=== PATIENT | female | born 1935 | race Caucasian/White ===

== ENCOUNTER → 2017-01-08 | Outpatient (CLI) | payer MEDICARE, OTHER ==
[~2017-01-08] MED LIST: ENAL10TA PO; ENAL20TA PO; HYDR1TAB PO; METO200T6 PO; OMG1KC PO
--- OUTSIDE RECORDS SUMMARY | 2017-01-08 10:48 | XMS REPORT | Continuity of Care Document ---
Author Author [facility] Organization [facility] Address Unknown Phone Unavailable Allergies Active Description Code Type Severity Reaction Onset Reported/Identified Relationship to Patient Clinical Status Yes No Known Drug Allergies [id number] Drug Allergy Mild N/A 06/12/2009 Medications Problems Date Dx Coded Attending Type Code Diagnosis Diagnosed By 08/17/2012 Ot 562.10 08/21/2012 Ot 272.4 08/21/2012 Ot 401.9 08/21/2012 Ot 426.3 08/21/2012 Ot 427.89 08/21/2012 Ot 553.20 08/21/2012 Ot 574.10 08/21/2012 Ot 787.01 08/21/2012 Ot 997.1 09/11/2015 Ot V76.12 09/11/2015 Ot 401.9 09/11/2015 Ot 433.10 09/11/2015 Ot 562.10 09/11/2015 Ot 574.20 09/11/2015 Ot 575.8 09/11/2015 Ot 787.91 09/11/2015 Ot 789.00 09/11/2015 Ot V10.42 09/11/2015 Ot V88.01 09/11/2015 Ot 553.20 09/11/2015 Ot 562.10 09/11/2015 Ot 574.20 09/11/2015 Ot V72.83 09/11/2015 Ot V76.12 09/11/2015 Ot 401.9 09/11/2015 Ot 433.10 09/11/2015 Ot 562.10 09/11/2015 Ot 574.20 09/11/2015 Ot 575.8 09/11/2015 Ot 787.91 09/11/2015 Ot 789.00 09/11/2015 Ot V10.42 09/11/2015 Ot V88.01 09/11/2015 Ot 553.20 09/11/2015 Ot 562.10 09/11/2015 Ot 574.20 09/11/2015 Ot V72.83 09/13/2015 PHAMTEE APRN Ot Z12.31 10/04/2015 PHAMTEE FINANCIAL SECRETARY Ot Z12.31 12/18/2015 Ot V76.12 12/18/2015 Ot 401.9 12/18/2015 Ot 433.10 12/18/2015 Ot 562.10 12/18/2015 Ot 574.20 12/18/2015 Ot 575.8 12/18/2015 Ot 787.91 12/18/2015 Ot 789.00 12/18/2015 Ot V10.42 12/18/2015 Ot V88.01 12/18/2015 Ot 553.20 12/18/2015 Ot 562.10 12/18/2015 Ot 574.20 12/18/2015 Ot V72.83 12/18/2015 TEE NATH APRN Ot Z12.31 01/12/2016 TIFFANY SHAY, JENAE Trejo Ot I65.23 01/25/2016 JENAE ALLEN MD Ot I65.23 03/26/2016 TERRY CAICEDO MD Ot M47.896 OTHER SPONDYLOSIS, LUMBAR REGION 04/10/2016 TERRY CAICEDO MD Ot M47.896 OTHER SPONDYLOSIS, LUMBAR REGION Procedures Results Encounters ACCT No. Visit Date/Time Discharge Status Pt. Type Provider Facility Loc./Unit Complaint [id number] 09/11/2015 10:19:00 2014 23:59:59 CLS Outpatient TEE NATH APRN [facility] [id number] 03/06/2016 11:25:00 ACT Outpatient TERRY CAICEDO MD [facility] [id number] 12/18/2015 13:05:00 ACT Outpatient JENAE ALLEN MD [facility] [id number] 08/20/2012 07:40:00 Document Registration [id number] 08/17/2012 05:47:00 Document Registration [id number] 08/14/2012 08:02:00 Document Registration [id number] 08/07/2012 13:13:00 Document Registration [id number] 12/20/2011 13:52:00 Document Registration [id number] 04/26/2011 14:08:00 Document Registration
--- NOTE | 2017-01-08 12:54 | Diagnostic Imaging Report ---
PROCEDURE: US Carotid Duplex Bilateral. TECHNIQUE: Multiple real-time grayscale images were obtained over the carotid arteries in various projections bilaterally. Additional duplex Doppler and color Doppler images were also obtained. INDICATION: Carotid artery disease. COMPARISON: The previous carotid Doppler exam performed on 12/18/2015 noted mild atherosclerotic disease involving both carotid systems but failed to show any sign of a hemodynamically significant stenosis of the common or internal carotid arteries. FINDINGS: On this exam, the atherosclerotic changes are again evident and do not seem to have progressed significantly. The flow velocities still failed to show any sign of a hemodynamically significant stenosis of either carotid system. The flow velocities are as follows: distal CCA right 46.9/ left 61 Proximal ICA right 53.9/ left 48.1 Mid ICA right 46.9/ left 58 Distal ICA right 50.4/ left 70.9 Proximal IC/CC right 0.8/ left 0.7. Both vertebral arteries were identified and there was antegrade flow bilaterally. IMPRESSION: There is atherosclerotic disease involving both carotid systems but there is still no evidence for hemodynamically significant stenosis of the common or internal carotid arteries. Overall, there has been no significant change since the prior study. Dictated by: Dictated on workstation # [id number]
== END ==
LOC: RAD 10:45
PROVIDERS: ATTEND Family Medicine
DX: I65.21 Occlusion and stenosis of right carotid artery (principal); I10 Essential (primary) hypertension
CPT/HCPCS: 93880

== ENCOUNTER → 2018-12-17 | Outpatient (CLI) | payer MEDICARE, OTHER ==
[~2018-12-17] MED LIST changes: +IOHEXOL 350 MG/ML 100 ML (OMNIPAQUE 350) VIAL IV ONE; +NS 100 ML (IVPB) BAG IV ONE; +RECEIVED CONTRAST (Hold Metformin) IV SCH
[2018-12-17 12:09] LABS: CALCIUM 10.1 MG/DL (8.5-10.1); CREATININE SERUM 1.24 MG/DL (0.60-1.30); POTASSIUM 4.2 MMOL/L (3.6-5.0)
--- NOTE | 2018-12-17 15:33 | Diagnostic Imaging Report ---
INDICATION: Left proptosis. TECHNIQUE Multiple contiguous axial images were obtained through the orbits and IACs without the use of intravenous contrast. Sagittal and coronal reformations were then performed. FINDINGS: The visualized intracranial structures are unremarkable. Both globes are normal in appearance. There is prominence of the left inferior rectus muscle as well as the left medial rectus muscle. Both demonstrate a biconvex contour and some lower than expected density. Additionally, there is prominence of the left lacrimal gland with respect to the right. The remaining rectus muscles are normal bilaterally. The frontal, ethmoid, sphenoid, and maxillary sinuses are clear. The ostiomeatal complexes are patent. There is maryjo bullosa on the left with some right deviation of the nasal septum. Mastoid air cells are clear. Both the internal and external auditory canals are widely patent bilaterally. Ossicles are unremarkable. IMPRESSION: 1. Moderate left proptosis with diffuse low density and prominence of the left inferior rectus muscle and medial rectus muscle. There is also prominence of the left lacrimal gland. 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 This should be further evaluated with gadolinium-enhanced MRI of the orbits, if possible. 2. 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 Dictated by: Dictated on workstation # [id number]
== END ==
LOC: RAD 11:31
PROVIDERS: ATTEND Nurse Practitioner Family
DX: H05.20 Unspecified exophthalmos (principal); J34.2 Deviated nasal septum; H50.89 Other specified strabismus
CPT/HCPCS: 36415; 70482; 80048

== ENCOUNTER → 2020-05-16 | Outpatient (CLI) | payer MEDICARE, OTHER ==
[~2020-05-16] MED LIST changes: -IOHEXOL 350 MG/ML 100 ML (OMNIPAQUE 350) VIAL IV ONE; -NS 100 ML (IVPB) BAG IV ONE; -RECEIVED CONTRAST (Hold Metformin) IV SCH
--- NOTE | 2020-05-16 11:21 | Diagnostic Imaging Report ---
INDICATION: Postmenopausal state, screening for osteoporosis. COMPARISON: None available. FINDINGS: AP Spine L1-L4: [BMD (g/cm2): 1.155] [T-Score: -0.4] [Z-Score: 1.0] [BMD Previous: na] [BMD % Change: na] LT Hip Neck: [BMD (g/cm2): 0.820] [T-Score: -1.6] [Z-Score: 0.4] LT Hip Total: [BMD (g/cm2):0.885] [T-Score:-1.0] [Z-Score: 0.9] [BMD Previous: na] [BMD % Change: na] RT Hip Neck: [BMD (g/cm2):0.769] [T-Score:-1.9] [Z-Score:0.0] RT Hip Total: [BMD (g/cm2):0.860] [T-score:-1.2] [Z-Score:0.7] [BMD Previous:na] [BMD % Change:na] *Indicates significant change from prior examination based on 95% confidence level. World Health Organization criteria for BMD interpretation classify patients as Normal (T-score at or above -1.0), Osteopenic (T-score between -1.0 and -2.5) or Osteoporotic (T-score at or below -2.5). LIMITATIONS AND MODIFICATION: None. FRACTURE RISK (FRAX SCORE): The ten year probability of (%): Major Osteoporotic Fracture: [15.0] Hip Fracture: [4.5] IMPRESSION: 1. Osteopenia (Low bone mass). 2. Baseline examination. 3. See below National Osteoporosis Foundation guidelines on when to potentially initiate pharmacologic therapy. Based on the National Osteoporosis Foundation Guidelines, pharmacologic treatment should be initiated in any of the following, unless clinical conditions suggest otherwise: * Any patient with prior fragility fracture of the hip or vertebrae. A spine fracture indicates 5X risk for subsequent spine fracture and 2X risk for subsequent hip fracture. * Osteoporosis (T-score <-2.5). * Postmenopausal women and men age 50 and older with low bone mass/osteopenia (T-score between -1.0 and -2.5) by DXA and 10-year major osteoporotic fracture greater than 20% or a 10-year probability of hip fracture greater than 3%. These fracture risks are supplied above in the FRAX score, if applicable. * Clinician judgement and/or patient preferences may indicate treatment for people with 10-year fracture probabilities above or below these levels. Dictated by: Dictated on workstation # [id number]
== END ==
LOC: RAD 10:16
PROVIDERS: ATTEND Family Medicine
DX: Z13.820 Encounter for screening for osteoporosis (principal); M85.89 Other specified disorders of bone density and structure, multiple sites; Z78.0 Asymptomatic menopausal state
CPT/HCPCS: 77080

== ENCOUNTER 2021-12-31 10:44 | Outpatient (CLI) | payer MEDICARE, OTHER | END 2021-12-31 11:02 | LOC: SLEEP 10:44 | PROVIDERS: ATTEND Family Medicine | DX: G47.61 Periodic limb movement disorder (principal); G47.36 Sleep related hypoventilation in conditions classified elsewhere | CPT/HCPCS: G0399 ==

== ENCOUNTER 2022-02-13 10:10 | Outpatient (RCR) | payer MEDICARE, OTHER | END 2022-02-14 | PROVIDERS: ATTEND Family Medicine | DX: M25.562 Pain in left knee (principal); I10 Essential (primary) hypertension ==

== ENCOUNTER 2022-03-11 11:32 | Outpatient (RCR) | payer MEDICARE, OTHER | END 2022-03-16 | disposition home or self-care (01) | PROVIDERS: ATTEND Family Medicine | DX: M25.562 Pain in left knee (principal); I10 Essential (primary) hypertension ==

== ENCOUNTER 2022-03-21 13:58 | Outpatient (RCR) | payer MEDICARE, OTHER | END 2022-03-21 16:00 | disposition home or self-care (01) | PROVIDERS: ATTEND Family Medicine | DX: M25.562 Pain in left knee (principal); I10 Essential (primary) hypertension ==

== ENCOUNTER → 2022-05-21 | Outpatient (CLI) | payer MEDICARE, OTHER ==
--- NOTE | 2022-05-21 14:52 | Diagnostic Imaging Report ---
INDICATION: Postmenopausal screening COMPARISON: 05/16/2020 FINDINGS: AP Spine L1-L4: [BMD (g/cm2): 1.215] [T-Score: 0.1] [Z-Score: 1.8] [BMD Previous: 1.155] [BMD % Change: 5.2] LT Hip Neck: [BMD (g/cm2): 0.825] [T-Score: -1.5] [Z-Score: 0.7] LT Hip Total: [BMD (g/cm2):0.862] [T-Score:-1.2] [Z-Score: 0.9] [BMD Previous: 0.885] [BMD % Change: -2.6] RT Hip Neck: [BMD (g/cm2):0.762] [T-Score:-2.0] [Z-Score:0.2] RT Hip Total: [BMD (g/cm2):0.853] [T-score:-1.2] [Z-Score:0.9] [BMD Previous:0.860] [BMD % Change:-0.8] *Indicates significant change from prior examination based on 95% confidence level. World Health Organization criteria for BMD interpretation classify patients as Normal (T-score at or above -1.0), Osteopenic (T-score between -1.0 and -2.5) or Osteoporotic (T-score at or below -2.5). LIMITATIONS AND MODIFICATION: None. FRACTURE RISK (FRAX SCORE): The ten year probability of (%): Major Osteoporotic Fracture: [15.6] Hip Fracture: [4.8] IMPRESSION: 1. Osteopenia (Low bone mass). 2. no significant interval change 3. See below National Osteoporosis Foundation guidelines on when to potentially initiate pharmacologic therapy. Based on the National Osteoporosis Foundation Guidelines, pharmacologic treatment should be initiated in any of the following, unless clinical conditions suggest otherwise: * Any patient with prior fragility fracture of the hip or vertebrae. A spine fracture indicates 5X risk for subsequent spine fracture and 2X risk for subsequent hip fracture. * Osteoporosis (T-score <-2.5). * Postmenopausal women and men age 50 and older with low bone mass/osteopenia (T-score between -1.0 and -2.5) by DXA and 10-year major osteoporotic fracture greater than 20% or a 10-year probability of hip fracture greater than 3%. These fracture risks are supplied above in the FRAX score, if applicable. * Clinician judgement and/or patient preferences may indicate treatment for people with 10-year fracture probabilities above or below these levels. Dictated by: Dictated on workstation # [id number]
== END ==
LOC: RAD 13:00
PROVIDERS: ATTEND Family Medicine
DX: Z13.820 Encounter for screening for osteoporosis (principal); M85.88 Other specified disorders of bone density and structure, other site; Z78.0 Asymptomatic menopausal state
CPT/HCPCS: 77080

== ENCOUNTER → 2022-11-06 | Outpatient (CLI) | payer MEDICARE, OTHER ==
--- NOTE | 2022-11-06 16:34 | Diagnostic Imaging Report ---
EXAMINATION: Left knee radiographs, 3 views. Right knee radiographs, 3 views. COMPARISON: None. HISTORY: 87-year-old female, bilateral knee pain. FINDINGS: The joint spaces are well preserved, bilaterally. There is no right or left knee joint effusion. There is no acute fracture. There are vascular calcifications. IMPRESSION: Unremarkable radiographs of the right and left knees. Dictated by: Dictated on workstation # [id number]
== END ==
LOC: RAD 13:40
PROVIDERS: ATTEND Family Medicine
DX: M25.569 Pain in unspecified knee (principal)

== ENCOUNTER 2023-06-11 09:36 | Inpatient (IN) | payer MEDICARE, OTHER ==
[~2023-06-11] VITALS: Ht 165.1 cm; Wt 74.5 kg
--- NOTE | 2023-06-11 10:08 | ED General ---
General Chief Complaint: General Problems/Pain Stated Complaint: GENERAL PAIN Nursing Triage Note: PT ARRIVED VIA [facility] EMS WITH CC OF ALT MENTAL STATUS,WEAKNESS, COUGH, N/V, AND DECREASE IN APPETITE. EMS REPORTED THAT PT HAS BEEN IN BED X2 DAYS. PT STATED THAT SHE VOMITED ONCE THIS MORNING. PT WAS TREATED LAST WEEK FOR EAR INFECTION. History of Present Illness Date Seen by Provider: Jun 11, 2023 Time Seen by Provider: 10:08 Initial Comments Patient is an 88-year-old female who presents to the emergency department with a chief complaint of generalized weakness, dry cough, nausea vomiting, diarrhea over the course of the last 2 days or so. She, reportedly from EMS was quite confused when they picked her up and would just repeat her first name when asked her name, date of etc. She is now conversant and seems to be oriented and is able to repeat her address. She states she is nauseated, she has a mild headache. She states that she has been able to take her medications and believes they state down over the last couple of days. She denies blood in her stool or vomit. She denies burning with urination. She states she lives at home with her daughters and they are who called EMS. She denies abdominal pain. She denies chest pain or shortness of breath. 1228 Daughter states she was fairly confused when she got up this morning. She states this was getting better when EMS arrived. Daughter affirms she had no fever yesterday. Timing/Duration: 2-3 Days Severity: Severe Associated Systoms: Cough, Headaches, Loss of Appetite, Malaise, Nausea/Vomiting, Weakness Allergies and Home Medications Allergies Coded Allergies: No Known Drug Allergies (Unverified , 06/12/09) Patient Home Medication List Home Medication List Reviewed: Yes Enalapril Maleate (Enalapril Maleate) 20 Mg Tablet, 20 MG PO DAILY, (Reported) Entered as Reported by: VIDAL WAHL on 08/14/12 1226 Enalapril Maleate (Enalapril Maleate) 10 Mg Tablet, 10 MG PO HS, (Reported) Entered as Reported by: VIDAL WAHL on 08/14/12 1226 Hydrocodone Bit/Acetaminophen (Vicodin 5-500 Tablet) 1 Each Tablet, 1-2 EACH PO Q4-6HRS, (Reported) Entered as Reported by: MERISSA PHELAN on 08/21/12 1623 Metoprolol Succinate (Toprol Xl 200 Mg) 200 Mg Tab.sr.24h, 200 MG PO DAILY, (Reported) Entered as Reported by: VIDAL WAHL on 08/14/12 1226 [place] 3 Polyunsat Fatty Acids (Fish Oil) 1,000 Mg Cap, 2,000 MG PO DAILY, (Reported) Entered as Reported by: VIDAL WAHL on 08/14/12 1226 Review of Systems Review of Systems Constitutional: see HPI, malaise, weakness EENTM: no symptoms reported Respiratory: cough Cardiovascular: no symptoms reported Gastrointestinal: diarrhea, nausea, vomiting Genitourinary: no symptoms reported Musculoskeletal: no symptoms reported Skin: no symptoms reported Psychiatric/Neurological: Headache, Weakness (generalized) Past Mjjhcet-Xkqgim-Hslpgk Hx Patient Social History Tobacco Use?: No Substance use?: No Alcohol Use?: No Past Medical History Reproductive Disorders: No Physical Exam Vital Signs Vital Signs - First Documented 06/11/23 09:50 Temp 37.6 Pulse 123 Resp 16 B/P (MAP) 157/103 (121) Pulse Ox 96 O2 Delivery Room Air Capillary Refill : Height, Weight, BMI Height: '" Weight: lbs. oz. kg; 25.00 BMI Method: General Appearance: No Apparent Distress, WD/WN Eyes: Bilateral Eye Normal Inspection, Bilateral Eye PERRL, Bilateral Eye EOMI HEENT: PERRL/EOMI, Moist Mucous Membranes Neck: Normal Inspection Respiratory: Lungs Clear, Normal Breath Sounds, No Accessory Muscle Use, No Respiratory Distress Cardiovascular: Regular Rate, Rhythm, Systolic Murmur, Gallop/S3, Tachycardia (130) Gastrointestinal: Non Tender, Soft, Abnormal Bowel Sounds (hypoacitve) Extremity: Normal Inspection, No Pedal Edema Neurologic/Psychiatric: Alert, Oriented x3, No Motor/Sensory Deficits, Normal Mood/Affect Skin: Warm/Dry, Pallor, Other (dried stool on her lower legs and feet) Focused Exam Sepsis Stage: Sepsis Lactate Level 06/11/23 09:52: Lactic Acid Level 2.44*H 06/11/23 12:01: Time of Focused Exam: 12:00 Respiratory: Lungs Clear, Normal Breath Sounds, No Accessory Muscle Use, No Respiratory Distress, Other (hypoxia on RA 88%) Cardiovascular: Systolic Murmur, Gallop/S3, Tachycardia Capillary Refill: Less Than 3 Seconds Peripheral Pulses: 1+ Radial Pulses (R), 1+ Radial Pulses (L) Skin: warm/dry, pallor Lactic Acid Level Laboratory Tests Test 06/11/23 09:52 06/11/23 12:01 Lactic Acid Level 2.44 MMOL/L (0.50-2.00) *H Within 3hrs of presentation: Admin fluids, Admin ABX, Blood cultures prior to ABX's, Focus exam, Lactate level Progress/Results/Core Measures Suspected Sepsis Recent Fever Within 48 Hours: No Infection Criteria Present: Suspected New Infection New/Unexplained Altered Menta: Yes SIRS Temperature: Pulse: 123 Respiratory Rate: 16 Laboratory Tests 06/11/23 09:52: White Blood Count 16.6H Blood Pressure 157 /103 Mean: 121 06/11/23 09:52: Lactic Acid Level 2.44*H 06/11/23 12:01: Laboratory Tests 06/11/23 09:52: Creatinine 2.03H, INR Comment 1.1, Platelet Count 282, Total Bilirubin 1.1H Results/Orders Lab Results Laboratory Tests Test 06/11/23 09:52 06/11/23 11:35 06/11/23 12:01 Range/Units White Blood Count 16.6 H 4.3-11.0 10^3/uL Red Blood Count 4.34 3.80-5.11 10^6/uL Hemoglobin 13.3 11.5-16.0 g/dL Hematocrit 40 35-52 % Mean Corpuscular Volume 92 80-99 fL Mean Corpuscular Hemoglobin 31 25-34 pg Mean Corpuscular Hemoglobin Concent 34 32-36 g/dL Red Cell Distribution Width 14.6 H 10.0-14.5 % Platelet Count 282 130-400 10^3/uL Mean Platelet Volume 10.9 9.0-12.2 fL Immature Granulocyte % (Auto) 1 % Neutrophils (%) (Auto) 86 H 42-75 % Lymphocytes (%) (Auto) 7 L 12-44 % Monocytes (%) (Auto) 6 0-12 % Eosinophils (%) (Auto) 0 0-10 % Basophils (%) (Auto) 0 0-10 % Neutrophils # (Auto) 14.3 H 1.8-7.8 10^3/uL Lymphocytes # (Auto) 1.2 1.0-4.0 10^3/uL Monocytes # (Auto) 1.0 0.0-1.0 10^3/uL Eosinophils # (Auto) 0.0 0.0-0.3 10^3/uL Basophils # (Auto) 0.0 0.0-0.1 10^3/uL Immature Granulocyte # (Auto) 0.1 0.0-0.1 10^3/uL Neutrophils % (Manual) 92 % Lymphocytes % (Manual) 5 % Monocytes % (Manual) 3 % Blood Morphology Comment NORMAL Prothrombin Time 14.5 12.2-14.7 SEC INR Comment 1.1 0.8-1.4 Activated Partial Thromboplast Time 24 24-35 SEC Sodium Level 145 135-145 MMOL/L Potassium Level 3.6 3.6-5.0 MMOL/L Chloride Level 108 H 98-107 MMOL/L Carbon Dioxide Level 21 21-32 MMOL/L Anion Gap 16 H 5-14 MMOL/L Blood Urea Nitrogen 32 H 7-18 MG/DL Creatinine 2.03 H 0.60-1.30 MG/DL Estimat Glomerular Filtration Rate 23 BUN/Creatinine Ratio 16 Glucose Level 198 H 70-105 MG/DL Lactic Acid Level 2.44 *H 0.50-2.00 MMOL/L Calcium Level 10.5 H 8.5-10.1 MG/DL Corrected Calcium 10.4 H 8.5-10.1 MG/DL Total Bilirubin 1.1 H 0.1-1.0 MG/DL Aspartate Amino Transf (AST/SGOT) 36 H 5-34 U/L Alanine Aminotransferase (ALT/SGPT) 17 0-55 U/L Alkaline Phosphatase 69 40-136 U/L Total Protein 7.0 6.4-8.2 GM/DL Albumin 4.1 3.2-4.5 GM/DL Urine Color YELLOW Urine Clarity CLEAR Urine pH 6.0 5-9 Urine Specific [place] >=1.030 1.016-1.022 Urine Protein 3+ H NEGATIVE Urine Glucose (UA) NEGATIVE NEGATIVE Urine Ketones 1+ H NEGATIVE Urine Nitrite NEGATIVE NEGATIVE Urine Bilirubin 1+ H NEGATIVE Urine Urobilinogen 0.2 < = 1.0 MG/DL Urine Leukocyte Esterase 1+ H NEGATIVE Urine RBC (Auto) 2+ H NEGATIVE Urine RBC 2-5 H /HPF Urine WBC 25-50 H /HPF Urine Crystals NONE /LPF Urine Bacteria LARGE H /HPF Urine Casts NONE /LPF Urine Mucus NEGATIVE /LPF Urine Culture Indicated CULTURE PENDING My Orders Orders - CAROLINE DUENAS MD Cbc With Automated Diff (06/11/23 10:21) Comprehensive Metabolic Panel (06/11/23 10:21) Blood Culture (06/11/23 10:21) Sputum Culture (06/11/23 10:21) Urinalysis (06/11/23 10:21) Urine Culture (06/11/23 10:21) Protime With Inr (06/11/23 10:21) Partial Thromboplastin Time (06/11/23 10:21) Chest 1 View, Ap/Pa Only (06/11/23 10:21) Ed Iv/Invasive Line Start (06/11/23 10:21) Ed Iv/Invasive Line Start (06/11/23 10:21) Vital Signs Adult Sepsis Patie Q15M (06/11/23 10:21) O2 (06/11/23 10:21) Remove Rings In Anticipation O (06/11/23 10:21) Lactic Acid Analyzer (06/11/23 10:21) Ekg Tracing (06/11/23 10:21) Lactated Ringers (Lr 1000 Ml Iv Solution (06/11/23 10:30) Ondansetron Injection (Zofran Injectio (06/11/23 10:30) Manual Differential (06/11/23 09:52) Ns Iv 1000 Ml (Sodium Chloride 0.9%) (06/11/23 11:00) Catheter(Urinary) Insert & Ass 03,15 (06/11/23 10:58) Lidocaine 2% (Urojet) (Xylocaine Urojet) (06/11/23 11:00) Ceftriaxone Iv/Im (Rocephin Iv/Im) (06/11/23 12:00) Medications Given in ED Current Medications Medications Dose Ordered Sig/Shi Route Start Time Stop Time Status Last Admin Dose Admin Lidocaine HCl 10 ml ONCE ONCE TOP 06/11/23 11:00 06/11/23 11:01 DC 06/11/23 11:29 10 ML Ondansetron HCl 4 mg ONCE ONCE IVP 06/11/23 10:30 06/11/23 10:31 DC 06/11/23 10:31 4 MG Vital Signs/I&O 06/11/23 09:50 Temp 37.6 Pulse 123 Resp 16 B/P (MAP) 157/103 (121) Pulse Ox 96 O2 Delivery Room Air Capillary Refill : Blood Pressure Mean: 121 Progress Note : Time: 12:13 Progress Note ComesRe-evaluated at this time. Her nausea is a little better - asking for a sprite. Still tachy at 122. Has completed 3L of fluids. I can now hear a gallop while auscultating her heart sounds. Patient seen and evaluated by me. Evaluation today includes "septic work-up", CBC, Chem-12, coags, urinalysis, blood cultures, lactic acid, single view chest x-ray. Pertinent physical exam findings well-developed well-nourished elderly female who is slightly pale, very tachycardic in the 130s, afebrile with slightly hypertensive blood pressure. Normal oxygen saturations on arrival. Lungs are clear, heart is very tachycardic, abdomen is soft and nontender. No respiratory distress. Slightly dry oral mucosa. No lower extremity edema. She does have dried stool on her lower legs. She is oriented to self, place. Differential diagnosis based on history and physical exam, urinary tract infection/sepsis/pneumonia/gastroenteritis Labs and imaging independently reviewed and interpreted by me. CBC shows a increased white blood cell count at 16.6 with 86% segmented neutrophils. Hemoglobin and hematocrit are normal at 13 and 40. Platelet count is 282. Her chemistry is remarkable for normal electrolytes, elevated BUN and creatinine of 32 and 2.03. Her glucose is up at 198. Total bilirubin minimally elevated at 1.1 and a slightly increased AST. Her lactic initially is 2.44. Coags are normal. Urine is treated with a specific gravity greater than 1.030, 3+ protein, 1+ ketone slight esterase, 2-5 red blood cells per high-powered field, 25-50 white blood cells and large bacteria. Her chest x-ray is independently reviewed by me and shows no focal infiltrates or effusions. Normal mediastinal structures. No increased pulmonary vascular congestion. Patient had 1 L of fluids via EMS and 2 more liters of IV fluids here in the emergency department. At reevaluation her heart rate is still in the upper 1 teens to 120s. Her blood pressure is normal. Her oxygen saturations did drop down into the 87-88% range. I placed 2 L of oxygen per nasal cannula. She has no increased work of breathing, no rales rhonchi or wheezes on lung examination. I do hear a gallop. She is mentating normally, her daughter is at the bedside. Case is discussed with Dr. Pride on for [facility] who accepts the patient inpatient to the ICU. ECG Initial ECG Impression Date: Jun 11, 2023 Initial ECG Impression Time: 10:27 Initial ECG Rate: 119 Initial ECG Rhythm: Normal Sinus Initial ECG Intervals GA 107 QRS 155 Qtc 450 Comment LBBB; tachy Diagnostic Imaging Diagonstic Imaging: Xray Plain Films/CT/US/NM/MRI: chest Comments [facility] [place], [place] NAME: CARLOS OSORIO I [facility] REC#: [id number] PT STATUS: REG ER : 1935 PHYSICIAN: CAROLINE DUENAS MD ADMIT DATE: 06/11/23/ER Draft Date of Exam:06/11/23 CHEST 1 VIEW, AP/PA ONLY INDICATION: Altered mental status Portable chest 10:51 AM Heart size and pulmonary vascularity are normal. Lungs are clear. There are no effusions or pneumothoraces. IMPRESSION: No acute abnormalities in the chest Dictated on workstation # [id number] Dict: 06/11/23 1052 Trans: 06/11/23 1054 HARITHA [id number] Interpreted by: DEIDRA BURKETT MD Electronically signed by: Critical Care Note Critical Care Start Time: 10:08 Stop Time: 12:22 Departure Communication (Admissions) Time/Spoke to Admitting Phy: 12:[address] Pride ([facility]) ICU, IP Impression Primary Impression: Sepsis Qualified Codes: A41.9 - Sepsis, unspecified organism; R65.20 - Severe sepsis without septic shock; N17.9 - Acute kidney failure, unspecified Additional Impressions: UTI (urinary tract infection) Qualified Codes: N39.0 - Urinary tract infection, site not specified; R31.9 - Hematuria, unspecified Acute kidney injury Disposition: ADMITTED INPATIENT Condition: Critical Admissions Decision to Admit Reason: Admit from ER (General) Decision to Admit/Date: Jun 11, 2023 Time/Decision to Admit Time: 12:22 Departure-Patient Inst. Referrals: JENAE ALLEN MD (PCP/Family) Primary Care Physician Copy Copies To 1: JENAE ALLEN MD, KATHRYN M MD Jun 11, 2023 10:08
[2023-06-11 10:27] LABS: BASOPHILS % (AUTO) 0 % (0-10); EOSINOPHILS % (AUTO) 0 % (0-10); HEMATOCRIT 40 % (35-52); HEMOGLOBIN 13.3 g/dL (11.5-16.0); LYMPHOCYTES # (AUTO) 1.2 10^3/uL (1.0-4.0); LYMPHOCYTES % (AUTO) 7 % (12-44); MEAN CORPUSCULAR HEMOGLOBIN 31 pg (25-34); MEAN CORPUSCULAR HGB CONC 34 g/dL (32-36); MEAN CORPUSCULAR VOLUME 92 fL (80-99); MEAN PLATELET VOLUME 10.9 fL (9.0-12.2); MONOCYTES % (AUTO) 6 % (0-12); NEUTROPHILS # (AUTO) 14.3 10^3/uL (1.8-7.8); NEUTROPHILS % (AUTO) 86 % (42-75); PLATELET COUNT 282 10^3/uL (130-400); WHITE BLOOD COUNT 16.6 10^3/uL (4.3-11.0)
[2023-06-11 10:29] LABS: ALBUMIN 4.1 GM/DL (3.2-4.5); POTASSIUM 3.6 MMOL/L (3.6-5.0)
[2023-06-11] MEDS ORDERED: LACTATED RINGERS 1,000 ML IV SCH (10:30)
[2023-06-11] MEDS ORDERED: ONDANSETRON 4 MG/2 ML (SDV) Z0FRAN IVP ONE (10:30)
[2023-06-11 10:31] LABS: CALCIUM 10.5 MG/DL (8.5-10.1)
[2023-06-11 10:32] LABS: INR 1.1 (0.8-1.4); PROTHROMBIN TIME PATIENT 14.5 SEC (12.2-14.7)
[2023-06-11 10:34] LABS: BILIRUBIN,TOTAL 1.1 MG/DL (0.1-1.0)
[2023-06-11 10:35] LABS: CREATININE SERUM 2.03 MG/DL (0.60-1.30)
[2023-06-11 10:48] LABS: NEUTROPHILS % (MANUAL) 92 %
[2023-06-11 10:49] LABS: LYMPHOCYTES % (MANUAL) 5 %; MONOCYTES % (MANUAL) 3 %; RBC MORPH NORMAL
--- NOTE | 2023-06-11 10:55 | Diagnostic Imaging Report ---
INDICATION: Altered mental status Portable chest 10:51 AM Heart size and pulmonary vascularity are normal. Lungs are clear. There are no effusions or pneumothoraces. IMPRESSION: No acute abnormalities in the chest Dictated by: Dictated on workstation # [id number]
[2023-06-11] MEDS ORDERED: NS IV 1000 ML 1,000 ML IV SCH (11:00)
[2023-06-11] MEDS ORDERED: LIDOCAINE UROJET 2% GEL 10 ML PKG TOP ONE (11:00)
[2023-06-11 11:47] LABS: BILIRUBIN,URINE 1+ (NEGATIVE); CLARITY,URINE CLEAR; COLOR,URINE YELLOW; GLUCOSE, URINE (UA) NEGATIVE (NEGATIVE); KETONES,URINE 1+ (NEGATIVE); LEUKOCYTE ESTERASE ,URINE 1+ (NEGATIVE); NITRITE,URINE NEGATIVE (NEGATIVE); PROTEIN,URINE 3+ (NEGATIVE)
[2023-06-11 11:58] LABS: BACTERIA,URINE LARGE /HPF; WBC,URINE 25-50 /HPF
[2023-06-11] MEDS ORDERED: cefTRIAXone IV/IM 1,000 MG in NS (IVPB) 50 ML 50 ML IV ONE (12:00)
[2023-06-11] MEDS ORDERED: cefTRIAXone 1,000 MG VIAL IV/IM ONE (12:15)
--- NOTE | 2023-06-11 12:26 | History & Physical ---
History of Present Illness HPI/Chief Complaint Chief complaint: Sepsis with acute kidney injury HPI: This is an 88-year-old female who was brought to the ER with increased confusion and found to have sepsis from UTI and acute kidney injury. Currently she is confused but alert and somewhat oriented. Patient will require IV fluids and ICU admission due to tachycardia of 130 with left bundle branch block with no history of cardiac issues but will consult Dr. Armenta. Patino catheter was placed and will monitor patient closely for urinary output. Rocephin initiated empirically. Source: patient Exam Limitations: clinical condition Date Seen 06/11/23 Time Seen by a Provider: 12:45 Attending Physician Cynthia Saha MD PCP Admitting Physician: Attending Physician: Referring Physician Date of Admission Home Medications & Allergies Home Medications Reviewed patient Home Medication Reconciliation performed by pharmacy medication reconciliations poultry service technician and/or nursing. Patients Allergies have been reviewed. Allergies Allergies Coded Allergies No Known Drug Allergies (Unverified06/12/09) Past Piinmql-Yptsce-Eudvin Hx Past Med/Social Hx: Reviewed Nursing Past Med/Soc Hx, Reviewed and Corrections made Patient Social History Marrital Status: single Employed/Student: retired Alcohol Use: Denies Use Smoking Status: Never a Smoker Immunizations Up To Date Date of Influenza Vaccine: Jul 18, 2012 Past Medical History Cardiac: Hypertension Reproductive: No Loss of Vision: Bilateral Review of Systems Constitutional: see HPI, dizziness, malaise, weakness Physical Exam Physical Exam Vital Signs Vital Signs - First Documented 06/11/23 06/11/23 09:50 12:31 Temp 37.6 Pulse 123 Resp 16 B/P (MAP) 157/103 (121) Pulse Ox 96 O2 Delivery Room Air O2 Flow Rate 0.50 Capillary Refill : Height, Weight, BMI Height: '" Weight: lbs. oz. kg; 25.00 BMI Method: General Appearance: No Apparent Distress, WD/WN, Anxious Eyes: Bilateral Eye Normal Inspection, Bilateral Eye PERRL, Bilateral Eye EOMI HEENT: PERRL/EOMI, Moist Mucous Membranes Neck: Normal Inspection Respiratory: Lungs Clear, Normal Breath Sounds, No Accessory Muscle Use, No Respiratory Distress Cardiovascular: Tachycardia (130) Gastrointestinal: Non Tender, Soft, Abnormal Bowel Sounds (hypoacitve) Extremity: Normal Inspection, No Pedal Edema Neurologic/Psychiatric: Alert, Oriented x3, No Motor/Sensory Deficits, Normal Mood/Affect Skin: Warm/Dry, Pallor, Other (dried stool on her lower legs and feet) Results Results/Procedures Labs Laboratory Tests 06/11/23 09:52 Patient resulted labs reviewed. Assessment/Plan Admission Diagnosis Assessment: Sepsis UTI Encephalopathy Acute kidney injury Tachycardia Left bundle branch block on EKG Plan: IV fluids Cardiology evaluation Echocardiogram ICU admission IV antibiotics DVT prophylaxis Admission Status: Inpatient Order (span 2 midnights) Reason for Inpatient Admission: Sepsis with acute kidney injury and tachycardia requiring ICU admission ROSELIA OLIVEIRA DO Jun 11, 2023 12:26
[2023-06-11] MEDS ORDERED: CALCIUM CARBONATE 500 MG CHEW TABLET PO PRN (13:15)
[2023-06-11] MEDS ORDERED: HYDROmorphone 2 MG/ML VIAL (DILAUDID) IV PRN (13:15)
[2023-06-11] MEDS ORDERED: ANTACID SUSP 30 ML UDC (MYLANTA) PO PRN (13:15)
[2023-06-11] MEDS ORDERED: ONDANSETRON 4 MG (ZOFRAN) ORAL DISSOLVE TAB PO PRN (13:15)
[2023-06-11] MEDS ORDERED: diphenhydrAMINE INJ 50 MG/ML VIAL IVP PRN (13:15)
[2023-06-11] MEDS ORDERED: polyethylene glycoL POWDER 17 GM (MIRALAX) PACK PO PRN (13:15)
[2023-06-11] MEDS ORDERED: ALPRAZolam 0.5 MG TABLET PO PRN (13:15)
[2023-06-11] MEDS ORDERED: diphenhydrAMINE 25 MG TABLET PO PRN (13:15)
[2023-06-11] MEDS ORDERED: ONDANSETRON 4 MG/2 ML (SDV) Z0FRAN IV PRN (13:15)
[2023-06-11] MEDS ORDERED: LACTULOSE SYRUP 10GM/15ML (ENULOSE) 30ML UDC PO PRN (13:15)
[2023-06-11] MEDS ORDERED: ACETAMINOPHEN 325 MG TABLET PO PRN (13:15)
[2023-06-11] MEDS ORDERED: BISACODYL 10 MG SUPPOSITORY PR PRN (13:15)
[2023-06-11] MEDS ORDERED: MILK OF MAGNESIA 400 MG/5 ML 30 ML UDC PO PRN (13:15)
[2023-06-11] MEDS ORDERED: MELATONIN 3 MG TABLET PO PRN (13:15)
[2023-06-11] MEDS ORDERED: CATHETER FLUSH 10 ML SYR IVP PRN (13:30)
[2023-06-11] MEDS ORDERED: meTOprolol 5 MG/5 ML (LOPRESSOR) VIAL IV NR (14:15)
[2023-06-11] MEDS: NS IV 1000 ML 1,000 ML IV SCH ×3 (14:19→21:36)
[2023-06-11] MEDS: ENOXAPARIN 30 MG/0.3 ML SYRINGE SC SCH (14:19)
--- NOTE | 2023-06-11 14:29 | Consultation-Cardiology ---
HPI-Cardiology Cardiology Consultation Date of Consultation 06/11/23 Date of Admission Time Seen by Provider: 14:19 Indication: Tachycardia HPI Patient is an 88 y/o female with history of HTN, HLP, LBBB. Presented to the ER with complaints of increased fatigue, N/V/D for the past 2 days. EMS and daughters noted patient was confused. Denies any recent chest pain or dyspnea. Denies syncope. EKG showing sinus tachycardia with LBBB. Patient had work up done in ER, dx with UTI and sepsis. Started on antibiotics and IVFs. Home Medications & Allergies Allergies: Coded Allergies: No Known Drug Allergies (Unverified , 06/12/09) [id number]-Hradlq Hx Patient Social History Employed/Student: retired Smoking Status: Never a Smoker Alcohol Use?: No Immunizations Up To Date Date of Influenza Vaccine: Jul 18, 2012 Past Medical History HTN, HLP, LBBB. Review of Systems-General Review of Systems Constitutional: see HPI, malaise, weakness EENTM: no symptoms reported Respiratory: cough Cardiovascular: no symptoms reported Gastrointestinal: diarrhea, nausea, vomiting Genitourinary: no symptoms reported Musculoskeletal: no symptoms reported Skin: no symptoms reported Psychiatric/Neurological: Headache, Weakness (generalized) Reviewed Test Results Reviewed Test Results Lab Laboratory Tests 06/11/23 09:52: White Blood Count 16.6H, Red Blood Count 4.34, Hemoglobin 13.3, Hematocrit 40, Mean Corpuscular Volume 92, Mean Corpuscular Hemoglobin 31, Mean Corpuscular Hem oglobin Concent 34, Red Cell Distribution Width 14.6H, Platelet Count 282, Mean Platelet Volume 10.9, Immature Granulocyte % (Auto) 1, Neutrophils (%) (Auto) 86H, Lymphocytes (%) (Auto) 7L, Monocytes (%) (Auto) 6, Eosinophils (%) (Auto) 0, Basophils (%) (Auto) 0, Neutrophils # (Auto) 14.3H, Lymphocytes # (Auto) 1.2, Monocytes # (Auto) 1.0, Eosinophils # (Auto) 0.0, Basophils # (Auto) 0.0, Immature Granulocyte # (Auto) 0.1, Neutrophils % (Manual) 92, Lymphocytes % (Manual) 5, Monocytes % (Manual) 3, Blood Morphology Comment NORMAL, Prothrombin Time 14.5, INR Comment 1.1, Activated Partial Thromboplast Time 24, Sodium Level 145, Potassium Level 3.6, Chloride Level 108H, Carbon Dioxide Level 21, Anion Gap 16H, Blood Urea Nitrogen 32H, Creatinine 2.03H, Estimat Glomerular Filtration Rate 23, BUN/Creatinine Ratio 16, Glucose Level 198H, Lactic Acid Level 2.44*H, Calcium Level 10.5H, Corrected Calcium 10.4H, Total Bilirubin 1.1H , Aspartate Amino Transf (AST/SGOT) 36H, Alanine Aminotransferase (ALT/SGPT) 17, Alkaline Phosphatase 69, Total Protein 7.0, Albumin 4.1 06/11/23 11:35: Urine Color YELLOW, Urine Clarity CLEAR, Urine pH 6.0, Urine Specific [place] >=1.030, Urine Protein 3+H, Urine Glucose (UA) NEGATIVE, Urine Ketones 1+H, Urine Nitrite NEGATIVE, Urine Bilirubin 1+H, Urine Urobilinogen 0.2, Urine Leukocyte Esterase 1+H, Urine RBC (Auto) 2+H, Urine RBC 2-5H, Urine WBC 25-50H, Urine Crystals NONE, Urine Bacteria LARGEH, Urine Casts NONE, Urine Mucus NEGATIVE, Urine Culture Indicated CULTURE PENDING 06/11/23 12:01: Lactic Acid Level 1.51 ECG Impression ECG Initial ECG Rhythm: S.Tach Physical Exam Physical Exam Vital Signs Vital Signs - First Documented 06/11/23 06/11/23 09:50 12:31 Temp 37.6 Pulse 123 Resp 16 B/P (MAP) 157/103 (121) Pulse Ox 96 O2 Delivery Room Air O2 Flow Rate 0.50 Capillary Refill : Less Than 3 Seconds Height, Weight, BMI Height: '" Weight: lbs. oz. kg; 25.00 BMI Method: General Appearance: No Apparent Distress, WD/WN Eyes: Bilateral Eye Normal Inspection, Bilateral Eye PERRL, Bilateral Eye EOMI HEENT: PERRL/EOMI, Moist Mucous Membranes Neck: Normal Inspection Respiratory: Lungs Clear, Normal Breath Sounds, No Accessory Muscle Use, No Respiratory Distress, Other (hypoxia on RA 88%) Cardiovascular: Systolic Murmur, Gallop/S3, Tachycardia Gastrointestinal: Non Tender, Soft, Abnormal Bowel Sounds (hypoacitve) Extremity: Normal Inspection, No Pedal Edema Neurologic/Psychiatric: Alert, Oriented x3, No Motor/Sensory Deficits, Normal Mood/Affect Skin: Warm/Dry, Pallor, Other (dried stool on her lower legs and feet) A/P-Cardiology Admission Diagnosis Sinus tachycardia LBBB UTI Sepsis Assessment/Plan Sinus tachycardia, likely d/t sepsis, will continue to monitor at this time. I will evaluate 2D Echo Congestive heart failure, acute left ventricular systolic dysfunction, probably ischemic in nature. Unknown etiology We will start low-dose beta-aakash and ARB and evaluate tolerance and response Monitor troponin level. Nonobstructive coronary artery disease per cardiac catheterization done in 2011. Chronic LBBB UTI with sepsis, management per medical services. HTN, continue to monitor. Confusion, unknown baseline Thank you for allowing us to participate in the management of Ms. Chisholm. This is Ayse Perla PA-C, as a scribe for Dr. Armenta. Patient was seen and evaluated with Ayse, I discussed the management plan, interviewed and examined the patient. Patient is currently in tachycardia probably due to sepsis. Evaluation of echocardiogram showed severe cardiomyopathy with hypokinesia at the anterior wall anterior apex and akinesia of the apex with ejection fraction 30 to 35%. Etiology is unknown No known previous history of coronary artery disease Planning to initiate low-dose beta-blockers and losartan once her sepsis is better, at this point I am hesitant to initiate these medication due to the risk of hypotension We will initiate Jardiance. Receiving antibiotics and managed by primary care team AYSE AGUIRRE Jun 11, 2023 14:29 SOFY ARMENTA MD Jun 11, 2023 15:28
[2023-06-11 15:03] VITALS: BP 168/87
[2023-06-11] MEDS ORDERED: RT-ALBUTEROL SULF 2.5 MG/3 ML PRE-MIX VIAL INH PRN (15:15)
[2023-06-11] MEDS ORDERED: ENAL-70 PO (15:34)
[2023-06-11] MEDS ORDERED: LATA2.5D19 OU (15:34)
[2023-06-11] MEDS ORDERED: METO50TA7 PO (15:34)
[2023-06-11] MEDS ORDERED: CLN.2T PO (15:34)
[2023-06-11] MEDS: SENNOSIDES 8.6 MG (SENOKOT) TAB PO SCH (20:11)
[2023-06-11] MEDS: DOCUSATE SODIUM 100 MG CAPSULE PO SCH (20:11)
[2023-06-11] MEDS: carvediloL 3.125 MG TABLET PO SCH (20:12)
[2023-06-11] MEDS: RT-ALBUTEROL SULF 2.5 MG/3 ML PRE-MIX VIAL INH SCH (21:15)
[2023-06-12] MEDS ORDERED: 1/2 NS IV SOLUTION 1000 ML 1,000 ML IV ONE (02:08)
[2023-06-12] MEDS ORDERED: 1/2 NS IV SOLUTION 1000 ML 1,000 ML IV SCH (02:15)
[2023-06-12 05:39] LABS: BASOPHILS % (AUTO) 0 % (0-10); EOSINOPHILS % (AUTO) 0 % (0-10); HEMATOCRIT 40 % (35-52); LYMPHOCYTES # (AUTO) 0.7 10^3/uL (1.0-4.0); LYMPHOCYTES % (AUTO) 3 % (12-44); MEAN CORPUSCULAR HEMOGLOBIN 31 pg (25-34); MEAN CORPUSCULAR HGB CONC 33 g/dL (32-36); MEAN CORPUSCULAR VOLUME 94 fL (80-99); MEAN PLATELET VOLUME 11.3 fL (9.0-12.2); MONOCYTES # (AUTO) 0.9 10^3/uL (0.0-1.0); MONOCYTES % (AUTO) 4 % (0-12); NEUTROPHILS # (AUTO) 19.1 10^3/uL (1.8-7.8); NEUTROPHILS % (AUTO) 91 % (42-75); PLATELET COUNT 247 10^3/uL (130-400); WHITE BLOOD COUNT 20.9 10^3/uL (4.3-11.0)
[2023-06-12 05:50] LABS: ALBUMIN 3.4 GM/DL (3.2-4.5); POTASSIUM 3.7 MMOL/L (3.6-5.0)
[2023-06-12 05:52] LABS: CALCIUM 9.1 MG/DL (8.5-10.1)
[2023-06-12 05:53] LABS: TOTAL PROTEIN 5.8 GM/DL (6.4-8.2)
[2023-06-12 05:55] LABS: BILIRUBIN,TOTAL 0.8 MG/DL (0.1-1.0)
[2023-06-12 05:56] LABS: LYMPHOCYTES % (MANUAL) 5 %; MONOCYTES % (MANUAL) 3 %; NEUTROPHILS % (MANUAL) 90 %; PHOSPHORUS 2.8 MG/DL (2.3-4.7); REACTIVE LYMPHOCYTES 2 %
[2023-06-12 05:57] LABS: CREATININE SERUM 1.75 MG/DL (0.60-1.30)
[2023-06-12 06:00] LABS: MAGNESIUM 1.8 MG/DL (1.6-2.4)
[2023-06-12] MEDS ORDERED: NS IV 1000 ML 1,000 ML IV SCH (06:00)
[2023-06-12 07:14] VITALS: BP 162/75
[2023-06-12] MEDS ORDERED: NS IV 500 ML 500 ML IV PRN (07:30)
--- NOTE | 2023-06-12 08:32 | Tele-ICU Progress Note ---
Subjective Date Seen by a Provider: Jun 12, 2023 Time Seen by a Provider: 08:20 Subjective/Events-last exam Tele-ICU Physician , consultation as per request of PCP Service provided via interactive audio and video telecommunications E-CARE system to a patient admitted to ICU bed in [facility]. Available chart/ vitals / labs / Images reviewed H&P is from ER notes Patient's information available about PMH, Shx, Fhx allergy reviewed inEMR. ROS as per chart and RN report Afebrile HD stable on 4L IN Hospital course 06/11 88 y/o F admitted with severe sepsis UTI. diarrhea,confusion A/P Non-ST elevation myocardial infarction, elevation in troponin TTE with worsening EF. Cards planning for cath. Sepsis due to UTI: Improved - S/p 3 L NS , BP stable , lactate normalized - Cont abx UTI - cont ABX KRISTINE - most likely volume depletion - cont IVF hydration HTN -Cards consulted - follow recom -Cont BB Hypoxia - mild , supplement 1 L O2 Lines : periph , (Central Line Necessity Reviewed) Patino: None OG: Nutrition: Analgesia: Anxiety/ delirium VTE Prophylaxis: juan a 30 Stress Ulcer Prophylaxis: na Plans in collaboration with bedside consultants and IM MDs. Discussed with RN to reach out if any questions or concerns A total of 20 minutes of critical care time was devoted to this patient today, required to treat and/or prevent further deterioration of critical care condition (as above) I am remotely monitoring this patient from another state. I am unable to do the bedside exam, and history/physical and pertinent information is taken from other notes in the computer and bedside staff. Sepsis Event Evaluation Height, Weight, BMI Height: '" Weight: lbs. oz. kg; 23.77 BMI Method: Focused Exam Lactate Level 06/11/23 09:52: Lactic Acid Level 2.44*H 06/11/23 12:01: Lactic Acid Level 1.51 Time of Focused Exam: 12:00 Exam Exam Patient acknowledged, consented, and participated in this virtual visit which was conducted using real time audio/video Vital Signs Date Time Temp Pulse Resp B/P (MAP) Pulse Ox O2 Delivery O2 Flow Rate FiO2 06/12/23 07:20 NIV Bilevel 40.00 06/12/23 07:18 36.5 06/12/23 07:15 109 06/12/23 07:14 106 19 95 40.00 06/12/23 07:00 112 23 162/75 (104) 94 Nasal Cannula 6.00 06/12/23 06:00 113 20 161/83 (109) 95 Nasal Cannula 6.00 06/12/23 05:52 Nasal Cannula 6.00 06/12/23 05:50 Nasal Cannula 4.00 06/12/23 05:09 109 23 157/84 (108) 96 Nasal Cannula 4.00 06/12/23 04:00 113 25 163/90 (114) 96 Nasal Cannula 4.00 06/12/23 04:00 91 Nasal Cannula 4.00 06/12/23 04:00 36.3 06/12/23 03:01 115 23 162/98 (119) 89 Nasal Cannula 2.00 06/12/23 02:00 109 156/89 (111) 93 Nasal Cannula 2.00 06/12/23 01:00 108 06/12/23 00:00 110 145/131 (136) 96 Nasal Cannula 2.00 06/11/23 23:59 99 Nasal Cannula 2.00 06/11/23 23:33 35.9 06/11/23 23:00 101 11 144/86 (105) 98 Nasal Cannula 2.00 06/11/23 22:00 116 13 168/103 (124) 100 Nasal Cannula 2.00 06/11/23 21:19 97 Nasal Cannula 2.00 06/11/23 21:00 114 10 163/100 (121) 97 Nasal Cannula 2.00 06/11/23 20:00 110 14 166/87 (113) 100 Nasal Cannula 2.00 06/11/23 20:00 98 Nasal Cannula 2.00 06/11/23 19:56 36.2 06/11/23 19:20 36.3 118 18 169/89 (115) 97 Nasal Cannula 2.00 06/11/23 19:00 106 06/11/23 18:41 Nasal Cannula 2.00 06/11/23 18:00 116 23 184/98 (126) 93 Nasal Cannula 2.00 06/11/23 17:00 111 8 173/86 (115) 95 Nasal Cannula 2.00 06/11/23 16:14 98 Nasal Cannula 2.00 06/11/23 16:00 110 32 164/106 (125) 98 Nasal Cannula 2.00 06/11/23 15:54 36.2 06/11/23 15:03 37.5 123 94 06/11/23 15:00 106 25 147/84 (105) 93 Nasal Cannula 2.00 06/11/23 14:00 123 18 168/87 (114) 94 Nasal Cannula 2.00 06/11/23 13:30 115 22 156/87 (110) 95 Nasal Cannula 2.00 06/11/23 13:30 95 Nasal Cannula 2.00 06/11/23 13:25 37.5 Nasal Cannula 2.00 06/11/23 13:00 123 162/88 92 Room Air 06/11/23 13:00 125 06/11/23 12:31 Nasal Cannula 0.50 06/11/23 09:50 37.6 123 16 157/103 (121) 96 Room Air I & O 06/12/23 07:00 Intake Total 5670 ml Output Total 475 ml Balance 5195 ml Height & Weight Height: '" Weight: lbs. oz. kg; 23.77 BMI Method: General Appearance: No Apparent Distress, WD/WN, Anxious HEENT: PERRL/EOMI, Moist Mucous Membranes Neck: Normal Inspection Respiratory: Lungs Clear, Normal Breath Sounds, No Accessory Muscle Use, No Respiratory Distress Cardiovascular: Tachycardia (130) Capillary Refill: Less Than 3 Seconds Peripheral Pulses: 1+ Radial Pulses (R), 1+ Radial Pulses (L) Extremity: Normal Inspection, No Pedal Edema Neurologic/Psychiatric: Alert, Oriented x3, No Motor/Sensory Deficits, Normal Mood/Affect Skin: Warm/Dry, Pallor, Other (dried stool on her lower legs and feet) Results Lab Laboratory Tests 06/11/23 09:52 06/12/23 04:57 Assessment/Plan Assessment/Plan . ATNONI BELLE MD Jun 12, 2023 08:32
--- NOTE | 2023-06-12 10:16 | Cardiology Progress Note ---
Subjective Date Seen by Provider: Jun 12, 2023 Time Seen by Provider: 10:11 Subjective/Events-last exam Number patient was seen at bedside, currently on BiPAP It was reported that she had hypoxemia overnight requiring BiPAP. Review of Systems General: Fatigue, Malaise Pulmonary: Dyspnea Focused Exam Lactate Level 06/11/23 09:52: Lactic Acid Level 2.44*H 06/11/23 12:01: Lactic Acid Level 1.51 Time of Focused Exam: 12:00 Objective-Cardiology Exam Last Set of Vital Signs Vital Signs 06/12/23 06/12/23 07:18 09:00 Temp 36.5 Pulse 114 Resp 28 B/P (MAP) 165/94 (117) Pulse Ox 91 O2 Delivery NIV Bilevel O2 Flow Rate 40.00 I&O Intake and Output 06/12/23 00:00 Intake Total 4570 ml Output Total 350 ml Balance 4220 ml Intake Oral 320 ml IV Total 4250 ml Output Urine Total 350 ml Daily Weight Change No General: Alert, Cooperative HEENT: Atraumatic Neck: Supple Lungs: Normal Air Movement, Other (Bilateral rhonchi) Heart: Regular Rate, Normal S1, Normal S2 Abdomen: Normal Bowel Sounds Extremities: No Clubbing Skin: No Rashes Neuro: Normal Speech Psych/Mental Status: Mood NL Results Lab Laboratory Tests 06/12/23 04:57 A/P-Cardiology Admission Diagnosis Sinus tachycardia LBBB UTI Sepsis Assessment/Plan Acute respiratory failure, Became hypoxemic and on BiPAP at this time Managed by medical team Non-ST elevation myocardial infarction, elevation in troponin Significant deterioration in left ventricular function I am planning to proceed with cardiac catheterization after discussing with the family Congestive heart failure, acute left ventricular systolic dysfunction, probably ischemic in nature. Significant deterioration in left ventricular systolic function Probably ischemic Started on beta-blockers and Entresto We will discuss with the family regarding cardiac catheterization possible PTCA Nonobstructive coronary artery disease per cardiac catheterization done in 2011. Chronic LBBB UTI with sepsis, management per medical services. HTN, continue to monitor. Confusion, unknown baseline SOFY HORN MD Jun 12, 2023 10:16
[2023-06-12] MEDS: cefTRIAXone IV/IM 1,000 MG in NS (IVPB) 50 ML 50 ML IV SCH (10:48)
[2023-06-12] MEDS: carvediloL 3.125 MG TABLET PO SCH ×2 (10:48→20:44)
[2023-06-12] MEDS: POTASSIUM CL 10MEQ/50ML IVPB 50 ML IV SCH ×2 (10:49→12:28)
[2023-06-12] MEDS: MAGNESIUM 1 GM/100 ML IVPB 100 ML IV SCH ×2 (10:49→12:29)
[2023-06-12] MEDS: DOCUSATE SODIUM 100 MG CAPSULE PO SCH ×2 (10:49→20:43)
[2023-06-12] MEDS: SENNOSIDES 8.6 MG (SENOKOT) TAB PO SCH ×2 (10:50→20:44)
--- NOTE | 2023-06-12 11:02 | Diagnostic Imaging Report ---
Congestive heart failure COMPARISON: 05/2023 FINDINGS: 5 lobe pulmonary opacities largely airspaced and centrally distributed. Suggests pulmonary edema but in the appropriate scenario could reflect pneumonia. No convincing pleural fluid. The heart size itself is stable. The central vascularity obscured by the airspace opacities. IMPRESSION: Likely central pulmonary edema without significant pleural fluid. Dictated by: Dictated on workstation # [id number]
[2023-06-12 12:39] LABS: ABG BASE EXCESS -3.9 MMOL/L (-2.5-2.5); ABG OXYGEN SATURATION 90 % (94-100); ABG PCO2 42 MMHG (35-45); ABG PO2 57 MMHG (79-93); ABG TCO2 22.7 MMOL/L (21.0-31.0)
[2023-06-12 12:42] LABS: ABG PH 7.32 (7.37-7.43); ALLENS TEST YES-POS; INSPIRED O2 5L; PATIENT TEMP 36.1; VENTILATOR NO
[2023-06-12] MEDS ORDERED: MAGNESIUM 1 GM/100 ML IVPB 100 ML IV ONE (12:45)
[2023-06-12] MEDS: ENOXAPARIN 30 MG/0.3 ML SYRINGE SC SCH (12:49)
--- NOTE | 2023-06-12 13:04 | Progress Note ---
SRIDHARMARLENE 06/12/23 1304: Subjective Date Seen by a Provider: Jun 12, 2023 Time Seen by a Provider: 12:58 Subjective/Events-last exam Patient seen and examined at bedside. She is wearing bipap at the time of my exam due to hypoxia overnight with sats in the 60s. She denies any pain and does not feel short of breath on bipap. She denies cough. No fever or chills overnight. She reports improvement in her urinary burning and does not have suprapubic or flank pain. A&Ox3 this morning which is improved since admission. Urine output still decreased after 2L. Echo yesterday revealed significant cardiomyopathy. This along with elevated troponin have prompted heart catheterization later today. Review of Systems General: No Chills, No Night Sweats; Fatigue HEENT: No Head Aches, No Visual Changes Pulmonary: Dyspnea; No Cough Cardiovascular: No: Chest Pain, Palpitations Gastrointestinal: No: Nausea, Vomiting Genitourinary: Dysuria; No Hematuria; Retention Neurological: No: Change in speech, Confusion Focused Exam Lactate Level 06/11/23 09:52: Lactic Acid Level 2.44*H 06/11/23 12:01: Lactic Acid Level 1.51 Time of Focused Exam: 12:00 Objective Exam Last Set of Vital Signs Vital Signs Date Time Temp Pulse Resp B/P (MAP) Pulse Ox O2 Delivery O2 Flow Rate FiO2 06/12/23 12:00 115 25 167/91 (116) 94 NIV Bilevel 40.00 06/12/23 11:30 36.1 Capillary Refill : Less Than 3 Seconds I&O l Intake and Output 06/12/23 00:00 Intake Total 4570 ml Output Total 350 ml Balance 4220 ml Intake Oral 320 ml IV Total 4250 ml Output Urine Total 350 ml Daily Weight Change No General: Alert, Oriented X3 HEENT: Atraumatic, EOMI Neck: Supple, No JVD Lungs: Clear to Auscultation, Normal Air Movement Heart: Regular Rate, Normal S1, Normal S2 Abdomen: Soft, No Tenderness Extremities: No Cyanosis, Normal Pulses Neuro: Normal Speech Psych/Mental Status: Mental Status NL, Mood NL Results Lab Laboratory Tests 06/11/23 15:51: Troponin I 3.683*H 06/11/23 20:47: Glucometer 136H 06/12/23 04:57: Troponin I 2.242*H, White Blood Count 20.9H, Red Blood Count 4.23, Hemoglobin 13.0, Hematocrit 40, Mean Corpuscular Volume 94, Mean Corpuscular Hemoglobin 31, Mean Corpuscular Hemoglobin Concent 33, Red Cell Distribution Width 15.1H, Platelet Count 247, Mean Platelet Volume 11.3, Immature Granulocyte % (Auto) 1, Neutrophils (%) (Auto) 91H, Lymphocytes (%) (Auto) 3L, Monocytes (%) (Auto) 4, Eosinophils (%) (Auto) 0, Basophils (%) (Auto) 0, Neutrophils # (Auto) 19.1H, Lymphocytes # (Auto) 0.7L, Monocytes # (Auto) 0.9, Eosinophils # (Auto) 0.0, Basophils # (Auto) 0.0, Immature Granulocyte # (Auto) 0.3H, Neutrophils % (Manual) 90, Lymphocytes % (Manual) 5, Monocytes % (Manual) 3, Reactive Lymphocytes 2, Sodium Level 142, Potassium Level 3.7, Chloride Level 112H, Carbon Dioxide Level 20L, Anion Gap 10, Blood Urea Nitrogen 31H, Creatinine 1.75H, Estimat Glomerular Filtration Rate 28, BUN/Creatinine Ratio 18, Glucose Level 155H, Calcium Level 9.1, Corrected Calcium 9.6, Phosphorus Level 2.8, Magnesium Level 1.8, Total Bilirubin 0.8, Aspartate Amino Transf (AST/SGOT) 40H, Alanine Aminotransferase (ALT/SGPT) 24, Alkaline Phosphatase 61, Total Protein 5.8L, Albumin 3.4 06/12/23 12:30: Blood Gas Puncture Site R RAD, Blood Gas Patient Temperature 36.1, Arterial Blood pH 7.32*L, Arterial Blood Partial Pressure CO2 42, Arterial Blood Partial Pressure O2 57L, Arterial Blood HCO3 21L, Arterial Blood Total CO2 22.7, Arterial Blood Oxygen Saturation 90L, Arterial Blood Base Excess -3.9L, Simone Test YES-POS, Blood Gas Ventilator Setting NO, Blood Gas Inspired Oxygen 5L Microbiology 06/11/23 MRSA Screen - Final, Complete MRSA not isolated 06/11/23 Urine Culture - Preliminary, Resulted Culture In Progress Assessment/Plan Assessment/Plan Assess & Plan/Chief Complaint Sepsis UTI Lactic acidosis Leukocytosis Tachycardia, elevated WBCs, tachypnea, elevated lactic acid, and source infection Leukocytosis worsened from 16 to 20 Lactic normalized to 1.5 Continue IV ceftriaxone 1000mg daily Urine culture pending Blood culture pending UA was positive for Bacteria, WBCs, and leukocyte esterase Hemodynamically stable TeleICU consulted Associated encephalopathy resolving KRISTINE Creatinine minimally improved to 1.75 from 2.03 Urine output poor after 2L of IV fluids continue to monitor urine output Continue NS 1L q8hr TeleICU consulted NSTEMI Cardiomyopathy Elevated troponin Troponin significantly elevated at 3.6, recheck was 2.[address] elevation on EKG thus far, known LBBB Echo showed EF of 30-35%, hypokinesis of anterior wall and akinesis of apex, and pulm artery pressure of 45-50mmHg Cards consulted- planning heart cath today Carvedilol 3.125 mg BID, cards to add ARB and SGLT-2 inhibitor DVT ppx- lovenox Code status- full LILIAN OLIVEIRA DO 06/13/23 0435: Assessment/Plan Assessment/Plan Assess & Plan/Chief Complaint Updated daughter again at 1250 and prepared for decline possibility Supervisory-Addendum Brief Verification & Attestation Participated in pt care: history, MDM, physical Personally performed: exam, history, MDM, supervision of care Care discussed with: Medical Student Procedures: n/a Results interpretation: Verified all documentation Verification and Attestation of Medical Student E/M Service A medical student performed and documented this service in my presence. I reviewed and verified all information documented by the medical student and made modifications to such information, when appropriate. I personally performed the physical exam and medical decision making. Lilian Oliveira Jun 13, 2023,04:34 MARLENE WALLER Jun 12, 2023 13:04 LILIAN OLIVEIRA DO Jun 13, 2023 04:35
[2023-06-12 14:29] VITALS: BP 122/71
[2023-06-12] MEDS ORDERED: FUROSEMIDE 40 MG/4 ML INJ (LASIX) IVP NR (15:30)
[2023-06-12] MEDS: NS IV 1000 ML 1,000 ML IV SCH (15:41)
[2023-06-12 19:03] VITALS: BP 128/71
[2023-06-12] MEDS: LATANOPROST 0.005% (XALATAN) OPHTH SOLN 2.5 ML OU SCH (20:45)
[2023-06-12 21:19] VITALS: BP 153/85
[2023-06-12] MEDS: RT-ALBUTEROL SULF 2.5 MG/3 ML PRE-MIX VIAL INH SCH (21:19)
[2023-06-13 02:09] VITALS: BP 137/70
[2023-06-13] MEDS: NS IV 1000 ML 1,000 ML IV SCH ×4 (05:51→22:08)
[2023-06-13 05:54] LABS: BASOPHILS % (AUTO) 0 % (0-10); EOSINOPHILS % (AUTO) 0 % (0-10); HEMATOCRIT 33 % (35-52); HEMOGLOBIN 10.8 g/dL (11.5-16.0); LYMPHOCYTES # (AUTO) 0.7 10^3/uL (1.0-4.0); LYMPHOCYTES % (AUTO) 6 % (12-44); MEAN CORPUSCULAR HEMOGLOBIN 31 pg (25-34); MEAN CORPUSCULAR HGB CONC 33 g/dL (32-36); MEAN CORPUSCULAR VOLUME 95 fL (80-99); MEAN PLATELET VOLUME 11.2 fL (9.0-12.2); MONOCYTES # (AUTO) 0.7 10^3/uL (0.0-1.0); MONOCYTES % (AUTO) 6 % (0-12); NEUTROPHILS # (AUTO) 9.7 10^3/uL (1.8-7.8); NEUTROPHILS % (AUTO) 87 % (42-75); PLATELET COUNT 168 10^3/uL (130-400); WHITE BLOOD COUNT 11.2 10^3/uL (4.3-11.0)
[2023-06-13 06:03] LABS: ALBUMIN 2.9 GM/DL (3.2-4.5); POTASSIUM 3.9 MMOL/L (3.6-5.0)
[2023-06-13 06:06] LABS: TOTAL PROTEIN 4.9 GM/DL (6.4-8.2)
[2023-06-13 06:07] LABS: BILIRUBIN,TOTAL 0.5 MG/DL (0.1-1.0)
[2023-06-13 06:09] LABS: CREATININE SERUM 1.7 MG/DL (0.60-1.30)
[2023-06-13] MEDS: POTASSIUM CL 10MEQ/50ML IVPB 50 ML IV SCH ×3 (06:09→08:45)
[2023-06-13] MEDS: KCL 20 MEQ TAB (K-DUR) PO SCH (06:10)
[2023-06-13] MEDS: MAGNESIUM 1 GM/100 ML IVPB 100 ML IV SCH (06:10)
[2023-06-13 06:33] LABS: PHOSPHORUS 3.1 MG/DL (2.3-4.7)
[2023-06-13 06:36] LABS: MAGNESIUM 2.3 MG/DL (1.6-2.4)
[2023-06-13 06:54] LABS: ABG BASE EXCESS -0.4 MMOL/L (-2.5-2.5); ABG OXYGEN SATURATION 94 % (94-100); ABG PCO2 43 MMHG (35-45); ABG PH 7.36 (7.37-7.43); ABG PO2 60 MMHG (79-93)
[2023-06-13 06:55] LABS: ALLENS TEST POSITIVE; INSPIRED O2 35% 2L; PATIENT TEMP 35.6; VENTILATOR NO
[2023-06-13] MEDS ORDERED: HEParin (CATH LAB) 2,000 ML IV ONE (07:08)
[2023-06-13] MEDS ORDERED: LIDOCAINE 1% INJ 20 ML VIAL ONE (07:08)
[2023-06-13] MEDS: RT-ALBUTEROL SULF 2.5 MG/3 ML PRE-MIX VIAL INH SCH ×2 (07:43→21:01)
[2023-06-13] MEDS: cefTRIAXone IV/IM 1,000 MG in NS (IVPB) 50 ML 50 ML IV SCH (08:35)
[2023-06-13] MEDS: carvediloL 3.125 MG TABLET PO SCH ×2 (08:35→21:16)
--- NOTE | 2023-06-13 09:13 | Cardiology Progress Note ---
Subjective Date Seen by Provider: Jun 13, 2023 Time Seen by Provider: 09:12 Subjective/Events-last exam Patient was seen and evaluated. She was sitting in bed, feeling better today. Review of Systems General: No Chills, No Night Sweats; Fatigue; No Malaise, No Appetite, No Other HEENT: No Head Aches, No Visual Changes, No Eye Pain, No Ear Pain, No Dysphasia, No Sinus Congestion, No Post Nasal Drip, No Sore Throat, No Other Pulmonary: Dyspnea; No Cough, No Pleuritic Chest Pain, No Other Cardiovascular: No: Chest Pain, Palpitations, Orthopnea, Paroxysmal Noc. Dyspnea, Edema, Lt Headedness, Other Focused Exam Lactate Level 06/11/23 09:52: Lactic Acid Level 2.44*H 06/11/23 12:01: Lactic Acid Level 1.51 Time of Focused Exam: 12:00 Objective-Cardiology Exam Last Set of Vital Signs Vital Signs 06/13/23 06/13/23 06/13/23 04:00 08:00 08:23 Temp 35.9 O2 Delivery High Flow N/C O2 Flow Rate 2.00 FiO2 35 I&O Intake and Output 06/13/23 00:00 Intake Total 2800 ml Output Total 1425 ml Balance 1375 ml Intake Oral 450 ml IV Total 2350 ml Output Urine Total 1425 ml General: Alert, Oriented X3 HEENT: Atraumatic, EOMI Neck: Supple, No JVD Lungs: Clear to Auscultation, Normal Air Movement Heart: Regular Rate, Normal S1, Normal S2 Abdomen: Soft, No Tenderness Extremities: No Cyanosis, Normal Pulses Skin: No Rashes Neuro: Normal Speech Psych/Mental Status: Mental Status NL, Mood NL Results Lab Laboratory Tests 06/13/23 05:40 A/P-Cardiology Admission Diagnosis Sinus tachycardia LBBB UTI Sepsis Assessment/Plan Acute respiratory failure, Became hypoxemic and on BiPAP at this time Managed by medical team Non-ST elevation myocardial infarction, elevation in troponin Significant deterioration in left ventricular function Discussed the management plan, planning for cardiac catheterization today. Congestive heart failure, acute left ventricular systolic dysfunction, probably ischemic in nature. Significant deterioration in left ventricular systolic function Probably ischemic Started on beta-blockers and Entresto Planning to proceed with cardiac catheterization Chronic renal insufficiency, slight improvement, continue to monitor renal function Nonobstructive coronary artery disease per cardiac catheterization done in 2011. Chronic LBBB UTI with sepsis, management per medical services. HTN, continue to monitor. Confusion, unknown baseline SOFY HORN MD Jun 13, 2023 09:13
--- NOTE | 2023-06-13 09:14 | Cardiac Procedure Note-CS/ASA ---
Pre-Procedure Note Pre-Op Procedure Note Date of Available H&P: Jun 13, 2023 Date H&P Reviewed: Jun 13, 2023 Time H&P Reviewed: 09:13 History & Physical: H&P Reviewed, Patient Examed, No changes noted Pre-Operative Diagnosis: CHF Moderate Sedation PreProcedure Time 09:13 ASA Score 3 Airway Lungs Heart ASA score ASA 1: a normal healthy patient ASA 2: a patient with a mild systemic disease (mid diabetes, controlled hypertension, obesity ASA 3: a patient with a severe systemic disease that limits activity (angina, COPD, prior Myocardial infarction) ASA 4: a patient with an incapacitating disease that is a constant threat to life (CHF, renal failure) ASA 5: a moribund patient not expected to survive 24 hrs. (ruptured aneurysm) ASA 6: a declared brain- patient whose organs are being harvested. For emergent operations, add the letter E after the classification Mallampati Classification Grade 3 Sedation Plan Analgesia, Amnesia, Plan communicated to team members, Discussed options with patient/fam, Discussed risks with patient/fam The patient is an appropriate candidate to undergo the planned procedure, sedation, and anesthesia. The patient immediately re-assessed prior to indication. SOFY HORN MD Jun 13, 2023 09:14
--- NOTE | 2023-06-13 09:19 | Diagnostic Imaging Report ---
INDICATION: Respiratory distress. Study compared 06/12/2023. FINDINGS: 5 lobe pulmonary opacities edema versus pneumonia are not significantly changed. Enlargement of the cardiac silhouette is likely mildly increased. There are similar small pleural effusions. Right PICC line placed in good position tip at the lower SVC. IMPRESSION: Extensive 5 lobe pulmonary opacities. Edema versus pneumonia unchanged. Slight increased heart size. Similar tiny effusions with the intervally placed PICC line projecting in good position. Dictated by: Dictated on workstation # [id number]
[2023-06-13] MEDS: DOCUSATE SODIUM 100 MG CAPSULE PO SCH ×2 (09:48→20:35)
[2023-06-13] MEDS: SENNOSIDES 8.6 MG (SENOKOT) TAB PO SCH ×2 (09:49→20:36)
--- NOTE | 2023-06-13 10:03 | Tele-ICU Progress Note ---
Subjective Date Seen by a Provider: Jun 13, 2023 Time Seen by a Provider: 10:02 Subjective/Events-last exam (Tele-ICU Physician , Progress Note ) Service provided via interactive audio and video telecommunications E-CARE system to a patient admitted to ICU bed in [facility]. Patient is seen today due to persistent need of ICU care Available chart/ vitals / labs / Images reviewed Video assessment done using teleICU camera, rest of exam as per RN Discussed with RN Events overnight : Afebrile hemodynamically stable Respiratory - I/O = ++ Drips: ns 75 Pressors- no Hospital course 06/11 88 y/o F admitted with severe sepsis UTI. diarrhea,confusion A/P Non-ST elevation myocardial infarction, elevation in troponin TTE with worsening EF. Cards planning for cath. Sepsis due to UTI: Improved - S/p 8L NS , BP stable - Cont abx UTI - cont ABX KRISTINE - suspected volume depletion in presentation - cont IVF hydration , CR stable at 1.7 AFTER 8 L fluid - given lasix and IVF simultaneusly , plans fot car cath - will receive contrast Pulm HTN RVSP 50mmHg on ECHO -monitor for [facility] Hypoxia - mild , supplement 1 L O2 - monitor carefully fluid balnce with KRISTINE , pulm HTN and sepsis Lines : periph , (Central Line Necessity Reviewed) Patino: None OG: Nutrition: Analgesia: Anxiety/ delirium VTE Prophylaxis: juan a 30 Stress Ulcer Prophylaxis: na Plans in collaboration with bedside consultants and IM MDs. Discussed with RN to reach out if any questions or concerns Case and care daily discussed on multidisciplinary rounds ( RN, PharmD, Ship Surveyor , Respiratory Therapy, group care worker ) A total of 25 minutes of critical care time was devoted to this patient today, required to treat and/or prevent further deterioration of critical care condition ( as above ) . I am remotely monitoring this patient from another state. I am unable to do the bedside exam, and history/physical and pertinent information is taken from other notes in the computer and bedside staff. Sepsis Event Evaluation Height, Weight, BMI Height: '" Weight: lbs. oz. kg; 23.77 BMI Method: Focused Exam Lactate Level 06/11/23 09:52: Lactic Acid Level 2.44*H 06/11/23 12:01: Lactic Acid Level 1.51 Time of Focused Exam: 12:00 Exam Exam Patient acknowledged, consented, and participated in this virtual visit which was conducted using real time audio/video Vital Signs Date Time Temp Pulse Resp B/P (MAP) Pulse Ox O2 Delivery O2 Flow Rate FiO2 06/13/23 09:00 80 35 152/82 (105) 96 High Flow N/C 2.00 06/13/23 08:23 High Flow N/C 2.00 06/13/23 08:00 77 20 150/77 (101) 100 Nasal Cannula 1.00 06/13/23 08:00 Nasal Cannula 2.00 06/13/23 08:00 35.9 06/13/23 07:43 100 Nasal Cannula 2.00 06/13/23 07:00 82 06/13/23 07:00 81 19 150/76 (100) 100 Nasal Cannula 2.00 06/13/23 06:00 90 18 149/79 (102) 100 Nasal Cannula 2.00 06/13/23 05:45 Nasal Cannula 2.00 06/13/23 05:00 77 17 131/75 (93) 100 NIV Bilevel 35.00 06/13/23 04:00 73 18 137/74 (95) 100 NIV Bilevel 35.00 06/13/23 04:00 98 NIV Bilevel 35 06/13/23 03:23 36.7 06/13/23 03:00 75 19 130/73 (92) 100 NIV Bilevel 35.00 06/13/23 02:09 73 18 99 35.00 06/13/23 02:00 75 19 137/70 (92) 100 NIV Bilevel 35.00 06/13/23 01:00 63 14 126/65 (85) 100 NIV Bilevel 35.00 06/13/23 01:00 70 06/13/23 00:00 75 16 102/59 (73) 98 NIV Bilevel 35.00 06/13/23 00:00 36.0 06/12/23 23:59 100 NIV Bilevel 35 06/12/23 23:00 74 16 95/52 (66) 98 NIV Bilevel 35.00 06/12/23 22:00 80 22 109/62 (78) 99 NIV Bilevel 35.00 06/12/23 21:19 80 20 100 35.00 06/12/23 21:00 76 19 153/85 (107) 99 NIV Bilevel 35.00 06/12/23 20:00 99 NIV Bilevel 35 06/12/23 20:00 84 26 150/82 (104) 100 NIV Bilevel 35.00 06/12/23 20:00 36.0 06/12/23 19:03 77 21 100 35.00 06/12/23 19:00 81 06/12/23 19:00 80 22 137/80 (99) 100 NIV Bilevel 35.00 06/12/23 18:00 77 16 128/71 (90) 100 NIV Bilevel 35.00 06/12/23 17:00 76 16 118/63 (81) 100 NIV Bilevel 35.00 06/12/23 16:06 36.0 06/12/23 16:00 77 18 89/53 (65) 99 NIV Bilevel 35.00 06/12/23 16:00 91 NIV Bilevel 35 06/12/23 15:46 100 NIV Bilevel 35.00 06/12/23 15:00 88 18 139/85 (103) 100 NIV Bilevel 40.00 06/12/23 14:30 NIV Bilevel 40.00 06/12/23 14:29 82 17 94 40.00 06/12/23 14:00 88 40 122/71 (88) 90 Nasal Cannula 6.00 06/12/23 13:20 92 06/12/23 13:00 101 19 155/82 (106) 97 Nasal Cannula 6.00 06/12/23 12:00 115 25 167/91 (116) 94 Nasal Cannula 6.00 06/12/23 12:00 91 Nasal Cannula 6.00 06/12/23 11:30 36.1 06/12/23 11:00 115 25 164/86 (112) 95 Nasal Cannula 6.00 06/12/23 10:05 94 Nasal Cannula 6.00 I & O 06/13/23 07:00 Intake Total 2850 ml Output Total 1525 ml Balance 1325 ml Height & Weight Height: '" Weight: lbs. oz. kg; 23.77 BMI Method: General Appearance: No Apparent Distress, WD/WN, Anxious HEENT: PERRL/EOMI, Moist Mucous Membranes Neck: Normal Inspection Respiratory: Lungs Clear, Normal Breath Sounds, No Accessory Muscle Use, No Respiratory Distress Cardiovascular: Tachycardia (130) Capillary Refill: Less Than 3 Seconds Peripheral Pulses: 1+ Radial Pulses (R), 1+ Radial Pulses (L) Extremity: Normal Inspection, No Pedal Edema Neurologic/Psychiatric: Alert, Oriented x3, No Motor/Sensory Deficits, Normal Mood/Affect Skin: Warm/Dry, Pallor, Other (dried stool on her lower legs and feet) Results Lab Laboratory Tests 06/12/23 04:57 06/13/23 05:40 Assessment/Plan Assessment/Plan 1 SHIRA VALDEZ MD Jun 13, 2023 10:02
[2023-06-13] MEDS ORDERED: VERAPAMIL 5 MG/2 ML (CALAN) VIAL IV ONE (10:14)
[2023-06-13] MEDS ORDERED: NITRO DRIP 25000 MCG/D5W 250 ML IV ONE (10:14)
[2023-06-13] MEDS ORDERED: MIDAZOLAM 5 MG/5 ML (VERSED) VIAL ONE (10:14)
[2023-06-13] MEDS ORDERED: fentaNYL INJ 100 MCG/2 ML AMP ONE (10:14)
[2023-06-13] MEDS ORDERED: HEParin 1000 UNIT/ML (10ML VIAL) FOR BOLUS ONE (10:14)
--- NOTE | 2023-06-13 11:16 | Cardiac Cath Report ---
Cardiac Cath Report Physician (s)/Hose Stripper (s) Physician SOFY HORN MD Pre-Procedure Diagnosis Pre-Procedure Diagnosis: CHF Post-Procedure Note Procedure Start Date: Jun 13, 2023 Name of Procedure: Left heart catheterization Findings/Procedure Note PROCEDURE NOTE: 88-year-old lady admitted with congestive heart failure, left bundle branch block, CAD, significant deterioration in left ventricular systolic function with congestive heart failure, cardiac catheterization was advised. After explaining the procedure to the patient, all pros and cons were explained, all questions were answered. The patient signed the consent and then she was placed in the cardiac catheterization laboratory. Groin was prepped in SL fashion local anesthesia was used. Sheath placed in the right radial artery, [place] catheter was advanced and engaged the left coronary system, there was significant tortuosity in the brachiocephalic artery, I was unable to manipulate the catheter, exchanged the catheter to a Yon right catheter advanced into the left ventricular cavity, pressure was measured, pullback LV to aorta was done, engage the right coronary artery and angiogram was done. At the end of the procedure the sheath was removed. Vascular band was used FINDINGS: Hemodynamics LV 104/16, end-diastolic pressure of 16 Aorta 98/52, mean of 71 ANATOMY: Left Main is free of obstructive disease Left Anterior Descending is tortuous with 40 to 50% stenosis in the mid LAD nonobstructive disease Left Circumflex has no obstructive disease Right Coronary Artery is dominant artery with no obstructive disease LV Gram was not done, pressure was measured CONCLUSION: Dominant right coronary system with mild disease nonobstructive disease in the coronary arteries Mildly elevated left ventricular end-diastolic pressure DISCUSSION AND RECOMMENDATION: Patient has nonischemic cardiomyopathy with deterioration in the left ventricular function. Medical therapy is recommended Anesthesia Type: Conscious Sedation Estimated blood loss (mL): 10 ml Contrast Amount: 25 ml Total Radiation Dose: 390 mGy Post-Procedure Diagnosis Post-operative diagnosis: Congestive heart failure Paroxysmal atrial fibrillation Hypertension Hyperlipidemia SOFY HORN MD Jun 13, 2023 11:16
--- NOTE | 2023-06-13 11:20 | Progress Note ---
LEMUEL NATH 06/13/23 1120: Subjective Date Seen by a Provider: Jun 13, 2023 Time Seen by a Provider: 09:40 Subjective/Events-last exam Our patient is an 88 yo F who was admitted to the hospital for sepsis secondary to UTI as well as an NSTEMI. She states that she is feeling a bit nauseous this morning but denies vomiting. No shortness of breath at rest. Denies chest pain, lightheadedness, headache, malaise, chills, or abdominal pain. She has not had a bowel movement since admission and is unsure if her urinary symptoms have improved as she has a catheter placed. Review of Systems General: No Chills, No Night Sweats, No Malaise HEENT: No Head Aches, No Visual Changes Pulmonary: No Dyspnea, No Cough, No Pleuritic Chest Pain Cardiovascular: No: Chest Pain, Palpitations, Lt Headedness Gastrointestinal: Nausea; No: Vomiting, Abdominal Pain Genitourinary: Other (unsure of urinary symptoms due to emplaced catheter) Neurological: No: Numbness, Change in speech, Confusion Focused Exam Lactate Level 06/11/23 09:52: Lactic Acid Level 2.44*H 06/11/23 12:01: Lactic Acid Level 1.51 Time of Focused Exam: 12:00 Objective Exam Last Set of Vital Signs Vital Signs Date Time Temp Pulse Resp B/P (MAP) Pulse Ox O2 Delivery O2 Flow Rate FiO2 06/13/23 09:00 80 35 152/82 (105) 96 High Flow N/C 2.00 06/13/23 08:00 35.9 06/13/23 04:00 35 Capillary Refill : Less Than 3 Seconds I&O Intake and Output 06/13/23 00:00 Intake Total 2800 ml Output Total 1425 ml Balance 1375 ml Intake Oral 450 ml IV Total 2350 ml Output Urine Total 1425 ml General: Alert, Oriented X3, No Acute Distress HEENT: Atraumatic, PERRLA, EOMI Neck: Supple, +2 Carotid Pulse No Bruit Lungs: Clear to Auscultation, Normal Air Movement Heart: Regular Rate, Normal S1, Normal S2, No Murmurs Abdomen: Normal Bowel Sounds, Soft, No Tenderness Extremities: No Clubbing, No Cyanosis, Other (Trace pedal edema (pitting)) Skin: No Rashes, No Breakdown, No Significant Lesion Neuro: Normal Speech, Normal Tone, Sensation Intact Psych/Mental Status: Mental Status NL, Mood NL Results Lab Laboratory Tests 06/12/23 12:30: Blood Gas Puncture Site R RAD, Blood Gas Patient Temperature 36.1, Arterial Blood pH 7.32*L, Arterial Blood Partial Pressure CO2 42, Arterial Blood Partial Pressure O2 57L, Arterial Blood HCO3 21L, Arterial Blood Total CO2 22.7, Arterial Blood Oxygen Saturation 90L, Arterial Blood Base Excess -3.9L, Simone Test YES-POS, Blood Gas Ventilator Setting NO, Blood Gas Inspired Oxygen 5L 06/13/23 05:40: White Blood Count 11.2H, Red Blood Count 3.45L, Hemoglobin 10.8L, Hematocrit 33L , Mean Corpuscular Volume 95, Mean Corpuscular Hemoglobin 31, Mean Corpuscular Hemoglobin Concent 33, Red Cell Distribution Width 15.0H, Platelet Count 168, Mean Platelet Volume 11.2, Immature Granulocyte % (Auto) 1, Neutrophils (%) (Auto) 87H, Lymphocytes (%) (Auto) 6L, Monocytes (%) (Auto) 6, Eosinophils (%) (Auto) 0, Basophils (%) (Auto) 0, Neutrophils # (Auto) 9.7H, Lymphocytes # (Auto) 0.7L, Monocytes # (Auto) 0.7, Eosinophils # (Auto) 0.0, Basophils # (Auto) 0.0, Immature Granulocyte # (Auto) 0.1, Sodium Level 142, Potassium Level 3.9, Chloride Level 112H, Carbon Dioxide Level 23, Anion Gap 7, Blood Urea Nitrogen 35H, Creatinine 1.70H, Estimat Glomerular Filtration Rate 29, BUN/Creatinine Ratio 21, Glucose Level 114H, Calcium Level 9.0, Corrected Calcium 9.9, Phosphorus Level 3.1, Magnesium Level 2.3, Total Bilirubin 0.5, Aspartate Amino Transf (AST/SGOT) 19, Alanine Aminotransferase (ALT/SGPT) 19, Alkaline Phosphatase 49, Total Protein 4.9L, Albumin 2.9L 06/13/23 06:48: Blood Gas Puncture Site LEFT RADIAL, Blood Gas Patient Temperature 35.6, Arterial Blood pH 7.36L, Arterial Blood Partial Pressure CO2 43, Arterial Blood Partial Pressure O2 60L, Arterial Blood HCO3 25, Arterial Blood Total CO2 26.0, Arterial Blood Oxygen Saturation 94, Arterial Blood Base Excess -0.4, Simone Test POSITIVE, Blood Gas Ventilator Setting NO, Blood Gas Inspired Oxygen 35% 2L Microbiology 06/11/23 MRSA Screen - Final, Complete MRSA not isolated 06/11/23 Urine Culture - Preliminary, Resulted Culture In Progress 06/11/23 Blood Culture - Preliminary, Resulted No growth Meds As indicated in medications list Radiology Date of Exam:06/13/23 CHEST 1 VIEW, AP/PA ONLY INDICATION: Respiratory distress. Study compared 06/12/2023. FINDINGS: 5 lobe pulmonary opacities edema versus pneumonia are not significantly changed. Enlargement of the cardiac silhouette is likely mildly increased. There are similar small pleural effusions. Right PICC line placed in good position tip at the lower SVC. IMPRESSION: Extensive 5 lobe pulmonary opacities. Edema versus pneumonia unchanged. Slight increased heart size. Similar tiny effusions with the intervally placed PICC line projecting in good position. Dictated by: Dictated on workstation # [id number] Dict: 06/13/23 0818 Trans: 06/13/23 1123 [id number] Interpreted by: WHITNEY GOEL Electronically signed by: WHITNEY GOEL 06/13/23 1123 Assessment/Plan Assessment/Plan Assess & Plan/Chief Complaint Sepsis UTI Lactic acidosis Leukocytosis - improving -Leukocytosis improved to 11.2 from 16.6 at admission -Lactic normalized to 1.5 -Continue IV ceftriaxone 1000mg daily -Urine culture in progress -Blood culture showed no growth -UA was positive for Bacteria, WBCs, and leukocyte esterase -Hemodynamically stable -TeleICU consulted -Associated encephalopathy resolved KRISTINE - improving -Kidney function continues to improve -Creatinine minimally improved to 1.70 -continue to monitor urine output Continue fluid resuscitation with NaCl TeleICU consulted NSTEMI Cardiomyopathy Elevated troponin -Troponin significantly elevated at 3.6, recheck was 2.2 -No ST elevation on EKG thus far, known LBBB -Echo showed EF of 30-35%, hypokinesis of anterior wall and akinesis of apex, and pulm artery pressure of 45-50mmHg -Cards consulted, conducted heart catheterization on 06/13 that showed a dominant right coronary system with mild disease non-obstructive disease in the coronary arteries. LAD was tortuous with 40-50% stenosis in the mid LAD. -Carvedilol 3.125 mg BID, cards to add ARB and SGLT-2 inhibitor -Continue clonidine 0.2 mg Bowel regimen available as needed for constipation DVT prophylaxis- lovenox Diet- regular Disposition- ICU for today with possible transfer to floor tomorrow Code status- full LILIAN OLIVEIRA DO 06/13/23 1423: Supervisory-Addendum Brief Verification & Attestation Participated in pt care: history, MDM, physical Personally performed: exam, history, MDM, supervision of care Care discussed with: Medical Student Procedures: n/a Results interpretation: Verified all documentation Verification and Attestation of Medical Student E/M Service A medical student performed and documented this service in my presence. I reviewed and verified all information documented by the medical student and made modifications to such information, when appropriate. I personally performed the physical exam and medical decision making. Lilian Oliveira, Jun 13, 2023,14:23 LEMUEL NATH Jun 13, 2023 11:20 LILIAN OLIVEIRA DO Jun 13, 2023 14:23
[2023-06-13] MEDS: ENOXAPARIN 30 MG/0.3 ML SYRINGE SC SCH (15:35)
[2023-06-13 21:04] VITALS: BP 139/87
[2023-06-13] MEDS: LATANOPROST 0.005% (XALATAN) OPHTH SOLN 2.5 ML OU SCH (21:23)
[2023-06-14 04:44] LABS: BASOPHILS % (AUTO) 0 % (0-10); HEMOGLOBIN 9.4 g/dL (11.5-16.0); MONOCYTES # (AUTO) 0.5 10^3/uL (0.0-1.0); NEUTROPHILS % (AUTO) 81 % (42-75)
[2023-06-14 04:46] LABS: EOSINOPHILS # (AUTO) 0.1 10^3/uL (0.0-0.3); EOSINOPHILS % (AUTO) 1 % (0-10); HEMATOCRIT 29 % (35-52); LYMPHOCYTES # (AUTO) 0.6 10^3/uL (1.0-4.0); LYMPHOCYTES % (AUTO) 9 % (12-44); MEAN CORPUSCULAR HEMOGLOBIN 31 pg (25-34); MEAN CORPUSCULAR HGB CONC 32 g/dL (32-36); MEAN CORPUSCULAR VOLUME 95 fL (80-99); MEAN PLATELET VOLUME 11.6 fL (9.0-12.2); MONOCYTES % (AUTO) 8 % (0-12); NEUTROPHILS # (AUTO) 5.1 10^3/uL (1.8-7.8); PLATELET COUNT 130 10^3/uL (130-400); WHITE BLOOD COUNT 6.3 10^3/uL (4.3-11.0)
[2023-06-14 04:54] LABS: ALBUMIN 2.6 GM/DL (3.2-4.5)
[2023-06-14 04:55] LABS: CALCIUM 8.9 MG/DL (8.5-10.1)
[2023-06-14 04:57] LABS: TOTAL PROTEIN 4.5 GM/DL (6.4-8.2)
[2023-06-14 04:58] LABS: BILIRUBIN,TOTAL 0.3 MG/DL (0.1-1.0)
[2023-06-14 05:00] LABS: CREATININE SERUM 1.33 MG/DL (0.60-1.30)
[2023-06-14] MEDS: POTASSIUM CL 10MEQ/50ML IVPB 50 ML IV SCH (05:55)
[2023-06-14] MEDS: KCL 20 MEQ TAB (K-DUR) PO SCH (05:55)
[2023-06-14] MEDS: MAGNESIUM 1 GM/100 ML IVPB 100 ML IV SCH (05:55)
--- NOTE | 2023-06-14 06:46 | Progress Note ---
Subjective Date Seen by a Provider: Jun 14, 2023 Time Seen by a Provider: 11:00 Subjective/Events-last exam Much improved overall Moving to 4th floor Family at bedside Coughing is noted by family O2 maintained Confusion at night noted Updated family Review of Systems General: Fatigue, Malaise Pulmonary: Dyspnea Focused Exam Lactate Level 06/11/23 09:52: Lactic Acid Level 2.44*H 06/11/23 12:01: Lactic Acid Level 1.51 Time of Focused Exam: 12:00 Objective Exam Last Set of Vital Signs Vital Signs Date Time Temp Pulse Resp B/P (MAP) Pulse Ox O2 Delivery O2 Flow Rate FiO2 06/14/23 06:00 73 22 141/72 (95) 100 High Flow N/C 2.00 06/13/23 20:00 36.1 06/13/23 04:00 35 Capillary Refill : Greater Than 3 Seconds I&O Intake and Output 06/14/23 00:00 Intake Total 3350 ml Output Total 575 ml Balance 2775 ml Intake Oral 1000 ml IV Total 2350 ml Output Urine Total 575 ml General: Alert, Oriented X3, Cooperative, No Acute Distress Lungs: Clear to Auscultation, Normal Air Movement Heart: Regular Rate, Normal S1, Normal S2, No Murmurs Psych/Mental Status: Mental Status NL, Mood NL Results Lab Laboratory Tests 06/13/23 06:48: Blood Gas Puncture Site LEFT RADIAL, Blood Gas Patient Temperature 35.6, Arterial Blood pH 7.36L, Arterial Blood Partial Pressure CO2 43, Arterial Blood Partial Pressure O2 60L, Arterial Blood HCO3 25, Arterial Blood Total CO2 26.0, Arterial Blood Oxygen Saturation 94, Arterial Blood Base Excess -0.4, Simone Test POSITIVE, Blood Gas Ventilator Setting NO, Blood Gas Inspired Oxygen 35% 2L 06/14/23 04:35: White Blood Count 6.3, Red Blood Count 3.06L, Hemoglobin 9.4L, Hematocrit 29L, Mean Corpuscular Volume 95, Mean Corpuscular Hemoglobin 31, Mean Corpuscular Hemoglobin Concent 32, Red Cell Distribution Width 15.1H, Platelet Count 130, Mean Platelet Volume 11.6, Immature Granulocyte % (Auto) 1, Neutrophils (%) (Auto) 81H, Lymphocytes (%) (Auto) 9L, Monocytes (%) (Auto) 8, Eosinophils (%) (Auto) 1, Basophils (%) (Auto) 0, Neutrophils # (Auto) 5.1, Lymphocytes # (Auto) 0.6L, Monocytes # (Auto) 0.5, Eosinophils # (Auto) 0.1, Basophils # (Auto) 0.0, Immature Granulocyte # (Auto) 0.0, Percent Immature Platelet Fraction 5.0, Sodium Level 142, Potassium Level 4.0, Chloride Level 113H, Carbon Dioxide Level 23, Anion Gap 6, Blood Urea Nitrogen 35H, Creatinine 1.33H, Estimat Glomerular Filtration Rate 39, BUN/Creatinine Ratio 26, Glucose Level 110H, Calcium Level 8.9, Corrected Calcium 10.0, Magnesium Level 2.1, Total Bilirubin 0.3, Aspartate Amino Transf (AST/SGOT) 16, Alanine Aminotransferase (ALT/SGPT) 18, Alkaline Phosphatase 42, Total Protein 4.5L, Albumin 2.6L Microbiology 06/11/23 MRSA Screen - Final, Complete MRSA not isolated 06/11/23 Urine Culture - Preliminary, Resulted Klebsiella pneumoniae 06/11/23 Blood Culture - Preliminary, Resulted No growth Assessment/Plan Assessment/Plan Assess & Plan/Chief Complaint Sepsis UTI Lactic acidosis Leukocytosis - improving -Leukocytosis improved to 11.2 from 16.6 at admission -Lactic normalized to 1.5 -Continue IV ceftriaxone 1000mg daily -Urine culture in progress -Blood culture showed no growth -UA was positive for Bacteria, WBCs, and leukocyte esterase -Hemodynamically stable -TeleICU consulted -Associated encephalopathy resolved KRISTINE - improving -Kidney function continues to improve -Creatinine minimally improved to 1.70 -continue to monitor urine output Continue fluid resuscitation with NaCl TeleICU consulted NSTEMI Cardiomyopathy Elevated troponin -Troponin significantly elevated at 3.6, recheck was 2.2 -No ST elevation on EKG thus far, known LBBB -Echo showed EF of 30-35%, hypokinesis of anterior wall and akinesis of apex, and pulm artery pressure of 45-50mmHg -Cards consulted, conducted heart catheterization on 06/13 that showed a dominant right coronary system with mild disease non-obstructive disease in the coronary arteries. LAD was tortuous with 40-50% stenosis in the mid LAD. -Carvedilol 3.125 mg BID, cards to add ARB and SGLT-2 inhibitor -Continue clonidine 0.2 mg Bowel regimen available as needed for constipation DVT prophylaxis- lovenox Diet- regular Disposition- ICU for today with possible transfer to floor tomorrow Code status- full ROSELIA OLIVEIRA DO Jun 14, 2023 06:46
--- NOTE | 2023-06-14 07:29 | Tele-ICU Progress Note ---
Subjective Date Seen by a Provider: Jun 14, 2023 Time Seen by a Provider: 07:29 Subjective/Events-last exam (Tele-ICU Physician , Progress Note ) Service provided via interactive audio and video telecommunications E-CARE system to a patient admitted to ICU bed in [facility]. Patient is seen today due to persistent need of ICU care Available chart/ vitals / labs / Images reviewed Video assessment done using teleICU camera, rest of exam as per RN Discussed with RN Events overnight : Afebrile hemodynamically stable Respiratory - I/O = ++ Drips: ns 75 Pressors- no Hospital course 06/11 88 y/o F admitted with severe sepsis UTI. diarrhea-now resloved,confusion a little better Went to CCL yesterday, no significant CAD, has CMP, LVEDP 16 CXR from yesterday still shows significant congestion, on beta aakash and Dameon Lab no change Cr 1.33 Now on 2 lpm NC with SpO2 100% Not working hard to breathe, did well up in chair Sepsis Event Evaluation Height, Weight, BMI Height: '" Weight: lbs. oz. kg; 26.04 BMI Method: Focused Exam Lactate Level 06/11/23 09:52: Lactic Acid Level 2.44*H 06/11/23 12:01: Lactic Acid Level 1.51 Time of Focused Exam: 12:00 Exam Exam Patient acknowledged, consented, and participated in this virtual visit which was conducted using real time audio/video Vital Signs Date Time Temp Pulse Resp B/P (MAP) Pulse Ox O2 Delivery O2 Flow Rate FiO2 06/14/23 06:00 73 22 141/72 (95) 100 High Flow N/C 2.00 06/14/23 05:00 53 20 139/71 (93) 100 High Flow N/C 2.00 06/14/23 04:00 99 Nasal Cannula 2.00 06/14/23 04:00 74 21 130/75 (93) 100 High Flow N/C 2.00 06/14/23 03:00 70 20 137/73 (94) 100 High Flow N/C 2.00 06/14/23 02:00 76 16 120/71 (87) 96 High Flow N/C 2.00 06/14/23 01:00 80 19 143/75 (97) 94 High Flow N/C 2.00 06/14/23 01:00 73 06/14/23 00:00 73 16 134/62 (86) 100 High Flow N/C 2.00 06/13/23 23:59 94 Nasal Cannula 2.00 06/13/23 23:15 High Flow N/C 2.00 06/13/23 23:00 77 18 142/77 (98) 99 NIV Bilevel 35.00 06/13/23 22:00 77 18 132/73 (92) 100 NIV Bilevel 35.00 06/13/23 21:45 NIV Bilevel 35.00 06/13/23 21:04 78 23 98 35.00 06/13/23 21:01 94 Nasal Cannula 3.00 06/13/23 21:00 76 19 139/87 (104) 99 High Flow N/C 2.00 06/13/23 20:00 36.1 06/13/23 20:00 84 23 143/74 (97) 93 High Flow N/C 2.00 06/13/23 20:00 Nasal Cannula 2.00 06/13/23 19:00 82 06/13/23 19:00 86 22 130/69 (89) 99 High Flow N/C 2.00 06/13/23 18:00 79 18 123/65 (84) 100 High Flow N/C 2.00 06/13/23 17:00 63 18 121/63 (82) 100 High Flow N/C 2.00 06/13/23 16:08 Nasal Cannula 2.00 06/13/23 16:00 70 22 116/65 (82) 100 High Flow N/C 2.00 06/13/23 15:00 71 19 131/68 (89) 100 High Flow N/C 2.00 06/13/23 14:00 73 17 135/75 (95) 100 High Flow N/C 2.00 06/13/23 13:00 79 06/13/23 13:00 78 16 138/75 (96) 100 High Flow N/C 2.00 06/13/23 12:00 35.9 06/13/23 12:00 68 30 128/71 (90) 97 High Flow N/C 2.00 06/13/23 12:00 Nasal Cannula 2.00 06/13/23 11:30 136/71 (92) 06/13/23 11:30 71 06/13/23 09:00 80 35 152/82 (105) 96 High Flow N/C 2.00 06/13/23 08:23 High Flow N/C 2.00 06/13/23 08:00 77 20 150/77 (101) 100 Nasal Cannula 1.00 06/13/23 08:00 Nasal Cannula 2.00 06/13/23 08:00 35.9 06/13/23 07:43 100 Nasal Cannula 2.00 I & O 06/14/23 07:00 Intake Total 2460 ml Output Total 550 ml Balance 1910 ml Height & Weight Height: '" Weight: lbs. oz. kg; 26.04 BMI Method: General Appearance: No Apparent Distress, WD/WN, Anxious HEENT: PERRL/EOMI, Moist Mucous Membranes Neck: Normal Inspection Respiratory: Lungs Clear, Normal Breath Sounds, No Accessory Muscle Use, No Respiratory Distress Cardiovascular: Regular Rate, Rhythm, Tachycardia (130) Capillary Refill: Greater Than 3 Seconds Peripheral Pulses: 1+ Radial Pulses (R), 1+ Radial Pulses (L) Gastrointestinal: normal bowel sounds, non tender, soft Extremity: Normal Inspection, No Pedal Edema, Pedal Edema (trace bialteral edema) Neurologic/Psychiatric: Alert, Oriented x3, No Motor/Sensory Deficits, Normal Mood/Affect Skin: Warm/Dry, Pallor, Other (dried stool on her lower legs and feet) Results Lab Laboratory Tests 06/13/23 05:40 06/14/23 04:35 Assessment/Plan Assessment/Plan CPM, will continue current meds, follow CXR, appears to be improving On IV Rocephin for UTI, WBC 6.3 Pulm HTN 50 on echo, continue present managment Critical Care: Critically Ill Patient Time spent with patient (mins): 20 LEMUEL BENNETT MD Jun 14, 2023 07:29
[2023-06-14] MEDS: RT-ALBUTEROL SULF 2.5 MG/3 ML PRE-MIX VIAL INH SCH ×2 (07:36→22:01)
[2023-06-14] MEDS: cefTRIAXone IV/IM 1,000 MG in NS (IVPB) 50 ML 50 ML IV SCH (08:27)
[2023-06-14] MEDS: carvediloL 3.125 MG TABLET PO SCH ×2 (08:27→20:06)
--- NOTE | 2023-06-14 08:30 | Cardiology Progress Note ---
Subjective Date Seen by Provider: Jun 14, 2023 Time Seen by Provider: 08:27 Subjective/Events-last exam Patient was seen at bedside, laying down comfortably Did not sleep well last night, still short of breath Review of Systems General: No Chills, No Night Sweats; Fatigue, Malaise; No Appetite, No Other HEENT: No Head Aches, No Visual Changes, No Eye Pain, No Ear Pain, No Dysphasia, No Sinus Congestion, No Post Nasal Drip, No Sore Throat, No Other Pulmonary: Dyspnea; No Cough, No Pleuritic Chest Pain, No Other Cardiovascular: No: Chest Pain, Palpitations, Orthopnea, Paroxysmal Noc. Dyspnea, Edema, Lt Headedness, Other Focused Exam Lactate Level 06/11/23 09:52: Lactic Acid Level 2.44*H 06/11/23 12:01: Lactic Acid Level 1.51 Time of Focused Exam: 12:00 Objective-Cardiology Exam Last Set of Vital Signs Vital Signs 06/13/23 06/14/23 06/14/23 06/14/23 04:00 07:00 07:39 07:57 Temp 35.9 Pulse 75 Resp 20 B/P (MAP) 147/83 (114) Pulse Ox 95 O2 Delivery Nasal Cannula O2 Flow Rate 3.00 FiO2 35 I&O Intake and Output 06/14/23 00:00 Intake Total 3350 ml Output Total 575 ml Balance 2775 ml Intake Oral 1000 ml IV Total 2350 ml Output Urine Total 575 ml General: Alert, Oriented X3, No Acute Distress HEENT: Atraumatic, PERRLA, EOMI Neck: Supple, +2 Carotid Pulse No Bruit Lungs: Clear to Auscultation, Normal Air Movement Heart: Regular Rate, Normal S1, Normal S2, No Murmurs Abdomen: Normal Bowel Sounds, Soft, No Tenderness Extremities: No Clubbing, No Cyanosis, Other (Trace pedal edema (pitting)) Skin: No Rashes, No Breakdown, No Significant Lesion Neuro: Normal Speech, Normal Tone, Sensation Intact Psych/Mental Status: Mental Status NL, Mood NL Results Lab Laboratory Tests 06/14/23 04:35 A/P-Cardiology Admission Diagnosis Sinus tachycardia LBBB UTI Sepsis Assessment/Plan Acute respiratory failure, Acute hypoxemic respiratory failure Chest x-ray showed 5 lobes infiltrate versus pulmonary edema Receiving Lasix and antibiotic Has been using BiPAP at night due to sleep apnea Still having shortness of breath. Non-ST elevation myocardial infarction, elevation in troponin Significant deterioration in left ventricular function Cardiac catheterization done on June 13, 2023 with nonobstructive disease Congestive heart failure, acute left ventricular systolic dysfunction, nonischemic cardiomyopathy Significant deterioration in left ventricular systolic function Started on beta-blockers and Entresto Continue to maximize medical therapy 2D echo done on June 11, 2023 with diffuse left ventricular hypokinesia, hypokinesia of the anterior wall, akinesia of the apex, ejection fraction 30 to 35%, moderate mitral regurgitation, moderate tricuspid regurgitation, PA pressure 45 to 50 mmHg Chronic renal insufficiency, slight improvement, continue to monitor renal function Coronary artery disease, Nonobstructive coronary artery disease per cardiac catheterization done in 2011. Cardiac catheterization done on June 13, 2023 showing nonobstructive disease, no change compared to the study of 2012 Chronic LBBB HTN, continue to monitor. Confusion, unknown baseline SOFY HORN MD Jun 14, 2023 08:30
[2023-06-14] MEDS: NS IV 1000 ML 1,000 ML IV SCH ×2 (09:14→10:22)
[2023-06-14] MEDS: SENNOSIDES 8.6 MG (SENOKOT) TAB PO SCH ×2 (09:14→20:08)
[2023-06-14] MEDS: DOCUSATE SODIUM 100 MG CAPSULE PO SCH ×2 (09:14→20:08)
[2023-06-14] MEDS: ENOXAPARIN 30 MG/0.3 ML SYRINGE SC SCH (13:22)
[2023-06-14 16:12] VITALS: BP 161/75
[2023-06-14 19:27] VITALS: BP 144/78
[2023-06-14 20:00] VITALS: BP 72/73
[2023-06-14] MEDS: LATANOPROST 0.005% (XALATAN) OPHTH SOLN 2.5 ML OU SCH (20:07)
[2023-06-15] VITALS (10 sets, daily range): BP systolic 153–191; BP diastolic 72–89
[2023-06-15] MEDS: carvediloL 3.125 MG TABLET PO SCH (05:08)
[2023-06-15 05:36] LABS: BASOPHILS % (AUTO) 0 % (0-10); MEAN CORPUSCULAR VOLUME 95 fL (80-99); PLATELET COUNT 132 10^3/uL (130-400)
[2023-06-15 05:38] LABS: EOSINOPHILS # (AUTO) 0.1 10^3/uL (0.0-0.3); EOSINOPHILS % (AUTO) 2 % (0-10); HEMATOCRIT 29 % (35-52); HEMOGLOBIN 9.2 g/dL (11.5-16.0); LYMPHOCYTES # (AUTO) 0.6 10^3/uL (1.0-4.0); LYMPHOCYTES % (AUTO) 10 % (12-44); MEAN CORPUSCULAR HEMOGLOBIN 31 pg (25-34); MEAN CORPUSCULAR HGB CONC 32 g/dL (32-36); MEAN PLATELET VOLUME 11.3 fL (9.0-12.2); MONOCYTES # (AUTO) 0.6 10^3/uL (0.0-1.0); MONOCYTES % (AUTO) 10 % (0-12); NEUTROPHILS # (AUTO) 4.5 10^3/uL (1.8-7.8); NEUTROPHILS % (AUTO) 77 % (42-75); WHITE BLOOD COUNT 5.8 10^3/uL (4.3-11.0)
[2023-06-15 05:52] LABS: ALBUMIN 2.7 GM/DL (3.2-4.5); POTASSIUM 3.8 MMOL/L (3.6-5.0)
[2023-06-15 05:53] LABS: CALCIUM 8.8 MG/DL (8.5-10.1)
[2023-06-15 05:54] LABS: TOTAL PROTEIN 4.7 GM/DL (6.4-8.2)
[2023-06-15 05:56] LABS: BILIRUBIN,TOTAL 0.3 MG/DL (0.1-1.0)
[2023-06-15 05:58] LABS: CREATININE SERUM 1.04 MG/DL (0.60-1.30)
[2023-06-15 06:01] LABS: MAGNESIUM 2.1 MG/DL (1.6-2.4)
--- NOTE | 2023-06-15 06:45 | Progress Note ---
Subjective Date Seen by a Provider: Jun 15, 2023 Time Seen by a Provider: 11:00 Subjective/Events-last exam Patient dramatically improved She will have a hot shower today Son at bedside asking multiple questions the same as yesterday Cough is improved Finishing up on antibiotics Creatinine back to baseline Review of Systems General: Fatigue, Malaise Pulmonary: Dyspnea Focused Exam Time of Focused Exam: 12:00 Objective Exam Last Set of Vital Signs Vital Signs Date Time Temp Pulse Resp B/P (MAP) Pulse Ox O2 Delivery O2 Flow Rate FiO2 06/15/23 03:46 36.0 70 183/84 (117) 97 High Flow N/C 2.00 06/15/23 00:00 20 06/14/23 20:00 28 Capillary Refill : Greater Than 3 Seconds I&O Intake and Output 06/15/23 00:00 Intake Total 1260 ml Output Total 700 ml Balance 560 ml Intake Oral 1260 ml Output Urine Total 700 ml # Voids 3 General: Alert, Oriented X3, Cooperative, No Acute Distress Lungs: Clear to Auscultation, Normal Air Movement Heart: Regular Rate, Normal S1, Normal S2, No Murmurs Psych/Mental Status: Mental Status NL, Mood NL Results Lab Laboratory Tests 06/15/23 05:15: White Blood Count 5.8, Red Blood Count 2.99L, Hemoglobin 9.2L, Hematocrit 29L, Mean Corpuscular Volume 95, Mean Corpuscular Hemoglobin 31, Mean Corpuscular Hemoglobin Concent 32, Red Cell Distribution Width 15.0H, Platelet Count 132, Mean Platelet Volume 11.3, Immature Granulocyte % (Auto) 1, Neutrophils (%) (Auto) 77H, Lymphocytes (%) (Auto) 10L, Monocytes (%) (Auto) 10, Eosinophils (%) (Auto) 2, Basophils (%) (Auto) 0, Neutrophils # (Auto) 4.5, Lymphocytes # (Auto) 0.6L, Monocytes # (Auto) 0.6, Eosinophils # (Auto) 0.1, Basophils # (Auto) 0.0, Immature Granulocyte # (Auto) 0.1, Percent Immature Platelet Fraction 5.8, Sodium Level 142, Potassium Level 3.8, Chloride Level 113H, Carbon Dioxide Level 25, Anion Gap 4L, Blood Urea Nitrogen 27H, Creatinine 1.04, Estimat Glomerular Filtration Rate 52, BUN/Creatinine Ratio 26, Glucose Level 118H, Calcium Level 8.8, Corrected Calcium 9.8, Magnesium Level 2.1, Total Bilirubin 0.3, Aspartate Amino Transf (AST/SGOT) 12, Alanine Aminotransferase (ALT/SGPT) 16, Alkaline Phosphatase 43, Total Protein 4.7L, Albumin 2.7L Microbiology 06/11/23 MRSA Screen - Final, Complete MRSA not isolated 06/11/23 Urine Culture - Preliminary, Resulted Klebsiella pneumoniae 06/11/23 Blood Culture - Preliminary, Resulted No growth Assessment/Plan Assessment/Plan Assess & Plan/Chief Complaint Sepsis UTI Lactic acidosis Leukocytosis - improving KRISTINE - improving NSTEMI Cardiomyopathy Elevated troponin DVT prophylaxis- lovenox Diet- regular Disposition- ICU for today with possible transfer to floor tomorrow Code status- full ROSELIA OLIVEIRA DO Jun 15, 2023 06:45
[2023-06-15] MEDS: RT-ALBUTEROL SULF 2.5 MG/3 ML PRE-MIX VIAL INH SCH ×3 (07:48→22:09)
[2023-06-15] MEDS: cefTRIAXone IV/IM 1,000 MG in NS (IVPB) 50 ML 50 ML IV SCH (09:41)
[2023-06-15] MEDS: DOCUSATE SODIUM 100 MG CAPSULE PO SCH ×3 (09:42→20:49)
[2023-06-15] MEDS: LOSARTAN 25 MG (COZAAR) TAB PO SCH (09:42)
[2023-06-15] MEDS: carvediloL 6.25 MG TABLET PO SCH ×2 (09:42→20:49)
[2023-06-15] MEDS: amLODIPine 5 MG TABLET PO SCH (09:42)
[2023-06-15] MEDS: SENNOSIDES 8.6 MG (SENOKOT) TAB PO SCH ×3 (09:42→20:49)
--- NOTE | 2023-06-15 10:23 | Cardiology Progress Note ---
Subjective Date Seen by Provider: Jun 15, 2023 Time Seen by Provider: 10:22 Subjective/Events-last exam Patient was seen at bedside sitting comfortably, feeling better. No new complaint. Review of Systems General: No Chills, No Night Sweats, No Fatigue, No Malaise, No Appetite, No Other HEENT: No Head Aches, No Visual Changes, No Eye Pain, No Ear Pain, No Dysphasia , No Sinus Congestion, No Post Nasal Drip, No Sore Throat, No Other Pulmonary: No Dyspnea, No Cough, No Pleuritic Chest Pain, No Other Cardiovascular: No: Chest Pain, Palpitations, Orthopnea, Paroxysmal Noc. Dyspnea, Edema, Lt Headedness, Other Focused Exam Time of Focused Exam: 12:00 Objective-Cardiology Exam Last Set of Vital Signs Vital Signs 06/14/23 06/15/23 06/15/23 06/15/23 20:00 08:17 08:21 10:14 Temp 36.9 Pulse 77 Resp 20 B/P (MAP) 172/81 (111) Pulse Ox 93 O2 Delivery Room Air O2 Flow Rate 0.00 FiO2 28 I&O Intake and Output 06/15/23 00:00 Intake Total 1260 ml Output Total 700 ml Balance 560 ml Intake Oral 1260 ml Output Urine Total 700 ml # Voids 3 General: Alert, Oriented X3, Cooperative, No Acute Distress HEENT: Atraumatic, PERRLA, EOMI Neck: Supple, +2 Carotid Pulse No Bruit Lungs: Clear to Auscultation, Normal Air Movement Heart: Regular Rate, Normal S1, Normal S2, No Murmurs Abdomen: Normal Bowel Sounds, Soft, No Tenderness Extremities: No Clubbing, No Cyanosis, Other (Trace pedal edema (pitting)) Skin: No Rashes, No Breakdown, No Significant Lesion Neuro: Normal Speech, Normal Tone, Sensation Intact Psych/Mental Status: Mental Status NL, Mood NL Results Lab Laboratory Tests 06/15/23 05:15 A/P-Cardiology Admission Diagnosis Sinus tachycardia LBBB UTI Sepsis Assessment/Plan Acute respiratory failure, Acute hypoxemic respiratory failure Chest x-ray showed 5 lobes infiltrate versus pulmonary edema Receiving Lasix and antibiotic Has been using BiPAP at night due to sleep apnea Reporting improvement. Feeling better. Continue to monitor Non-ST elevation myocardial infarction, elevation in troponin Significant deterioration in left ventricular function Cardiac catheterization done on June 13, 2023 with nonobstructive disease Congestive heart failure, acute left ventricular systolic dysfunction, nonischemic cardiomyopathy Significant deterioration in left ventricular systolic function Started on beta-blockers and Entresto Continue to maximize medical therapy 2D echo done on June 11, 2023 with diffuse left ventricular hypokinesia, hypokinesia of the anterior wall, akinesia of the apex, ejection fraction 30 to 35%, moderate mitral regurgitation, moderate tricuspid regurgitation, PA pressure 45 to 50 mmHg Chronic renal insufficiency, improvement in renal function Monitor renal function closely after restarting losartan Coronary artery disease, Nonobstructive coronary artery disease per cardiac catheterization done in 2011. Cardiac catheterization done on June 13, 2023 showing nonobstructive disease, no change compared to the study of 2012 Chronic LBBB Hypertension, poor control. I restarted losartan at 25 mg daily, Coreg 3.125 mg twice daily and amlodipine 5 mg daily. Continue on clonidine and monitor blood pressure Confusion, unknown baseline SOFY HORN MD Jun 15, 2023 10:23
[2023-06-15] MEDS: ENOXAPARIN 40 MG/0.4 ML SYRINGE SC SCH (13:33)
[2023-06-15] MEDS: LATANOPROST 0.005% (XALATAN) OPHTH SOLN 2.5 ML OU SCH (20:49)
[2023-06-16 03:26] VITALS: BP 163/84
--- NOTE | 2023-06-16 06:30 | Progress Note ---
Subjective Date Seen by a Provider: Jun 16, 2023 Time Seen by a Provider: 09:00 Subjective/Events-last exam Much improved No falls No pain reported Working with therapy Checked meds and labs Updated daughter on her progress SW will speak to her about options for recovery Review of Systems General: Fatigue, Malaise Neurological: Weakness, Incoordination Focused Exam Time of Focused Exam: 12:00 Objective Exam Last Set of Vital Signs Vital Signs Date Time Temp Pulse Resp B/P (MAP) Pulse Ox O2 Delivery O2 Flow Rate FiO2 06/16/23 03:26 36.4 68 18 163/84 (110) 96 Room Air 0.00 0.00 06/14/23 20:00 28 Capillary Refill : Greater Than 3 Seconds I&O Intake and Output 06/16/23 00:00 Intake Total 990 ml Balance 990 ml Intake Oral 940 ml IV Total 50 ml # Voids 7 General: Alert, Oriented X3, Cooperative, No Acute Distress Lungs: Clear to Auscultation, Normal Air Movement Heart: Regular Rate, Normal S1, Normal S2, No Murmurs Psych/Mental Status: Mental Status NL, Mood NL Results Lab Microbiology 06/11/23 MRSA Screen - Final, Complete MRSA not isolated 06/11/23 Urine Culture - Final, Complete Klebsiella pneumoniae 06/11/23 Blood Culture - Preliminary, Resulted No growth Assessment/Plan Assessment/Plan Assess & Plan/Chief Complaint Sepsis UTI Lactic acidosis Leukocytosis - improving KRISTINE - improving NSTEMI Cardiomyopathy Elevated troponin DVT prophylaxis- lovenox Diet- regular Disposition- Home Code status- full ROSELIA OLIVEIRA DO Jun 16, 2023 06:30
[2023-06-16 06:51] LABS: BASOPHILS % (AUTO) 0 % (0-10); EOSINOPHILS # (AUTO) 0.3 10^3/uL (0.0-0.3); EOSINOPHILS % (AUTO) 4 % (0-10); HEMATOCRIT 30 % (35-52); LYMPHOCYTES # (AUTO) 0.7 10^3/uL (1.0-4.0); LYMPHOCYTES % (AUTO) 11 % (12-44); MEAN CORPUSCULAR HEMOGLOBIN 31 pg (25-34); MEAN CORPUSCULAR HGB CONC 33 g/dL (32-36); MEAN CORPUSCULAR VOLUME 94 fL (80-99); MEAN PLATELET VOLUME 11.2 fL (9.0-12.2); MONOCYTES # (AUTO) 0.7 10^3/uL (0.0-1.0); MONOCYTES % (AUTO) 10 % (0-12); NEUTROPHILS # (AUTO) 4.9 10^3/uL (1.8-7.8); NEUTROPHILS % (AUTO) 74 % (42-75); PLATELET COUNT 141 10^3/uL (130-400); WHITE BLOOD COUNT 6.7 10^3/uL (4.3-11.0)
[2023-06-16 07:14] LABS: ALBUMIN 2.9 GM/DL (3.2-4.5); POTASSIUM 3.7 MMOL/L (3.6-5.0)
[2023-06-16 07:16] LABS: CALCIUM 9.3 MG/DL (8.5-10.1)
[2023-06-16 07:17] LABS: TOTAL PROTEIN 5.4 GM/DL (6.4-8.2)
[2023-06-16 07:19] LABS: BILIRUBIN,TOTAL 0.4 MG/DL (0.1-1.0)
[2023-06-16 07:20] LABS: CREATININE SERUM 0.9 MG/DL (0.60-1.30)
[2023-06-16 07:23] LABS: MAGNESIUM 1.9 MG/DL (1.6-2.4)
[2023-06-16 07:26] VITALS: BP 196/91
[2023-06-16] MEDS: SENNOSIDES 8.6 MG (SENOKOT) TAB PO SCH ×2 (08:15→20:06)
[2023-06-16] MEDS: amLODIPine 5 MG TABLET PO SCH (08:15)
[2023-06-16] MEDS: carvediloL 6.25 MG TABLET PO SCH ×2 (08:15→20:05)
[2023-06-16] MEDS: LOSARTAN 25 MG (COZAAR) TAB PO SCH (08:15)
[2023-06-16] MEDS: cefTRIAXone IV/IM 1,000 MG in NS (IVPB) 50 ML 50 ML IV SCH (08:15)
[2023-06-16] MEDS: DOCUSATE SODIUM 100 MG CAPSULE PO SCH ×2 (08:16→20:06)
[2023-06-16] MEDS: RT-ALBUTEROL SULF 2.5 MG/3 ML PRE-MIX VIAL INH SCH ×2 (08:32→19:10)
--- NOTE | 2023-06-16 10:10 | Physical Therapy Evaluation ---
PT Evaluation-General Medical Diagnosis Admission Date Jun 11, 2023 at 13:01 Medical Diagnosis: KRISTINE/sepsis/UTI Onset Date: Jun 11, 2023 Therapy Diagnosis Therapy Diagnosis: debility/weakness Precautions Precautions/Isolations: Standard Precautions Referral Physician: Shannen Reason for Referral: Evaluation/Treatment Medical History Current History EMS secondary to AMS, weakness, cough Reviewed History: Yes Social History Home: Single Level Current Living Status: Other Family Entry Into Home: Stairs With Railing PT Steps Into Home: 2 Prior Prior Level of Function SCALE: Activities may be completed with or without assistive devices. 5-Penvppspwx-cphmnrx completes the activity by him/herself with no assistance from a helper. 5-Set-up or Clean-up Assistance-helper sets up or cleans up; patient completes activity. [place] assists only prior to or following the activity. 4-Supervision or Touching Assistance-helper provides verbal cues and/or touching/steadying and/or contact guard assistance as patient completes activity. Assistance may be provided throughout the activity or intermittently. 3-Partial/Moderate Assistance-helper does LESS THAN HALF the effort. [place] lifts, holds or supports trunk or limbs, but provides less than half the effort. 2-Substantial/Maximal Assistance-helper does MORE THAN HALF the effort. [place] lifts or holds trunk or limbs and provides more than half the effort. 1-Eqvzrdmlg-dzvggn does ALL the effort. Patient does none of the effort to complete the activity. Or, the assistance of 2 or more helpers is required for the patient to complete the activity. If activity was not attempted, code reason: 7-Patient Refused. 9-Not Applicable-not attempted and the patient did not perform the activity before the current illness, exacerbation or injury. 10-Not Attempted due to Environmental Limitations-(lack of equipment, weather restraints, etc.). 88-Not Attempted due to Medical Conditions or Safety Concerns. Bed Mobility: 6 Transfers (B,C,W/C): 6 Gait: 6 Indoor Mobility (Ambulation): Independent Stairs: Independent Prior Devices Use: None PT Evaluation-Current Subjective Patient agrees to PT. Pain Numeric Pain Scale: 0-No Pain Location: No Pain Reported Objective Patient Orientation: Normal For Age Attachments: Central Line, Oxygen ROM/Strength ROM Lower Extremities bilateral LE WFL Strength Lower Extremities 4-/5 grossly bilateral LE all planes Integumentary/Posture Bowel Incontinence: No Bladder Incontinence: No Posture WFL Neuromuscular (Tone, Coordination, Reflexes) grossly intact Sensory Vision: Wears Glasses Hearing: Functional Transfers Lying to Sitting/Side of Bed(Q: 6 Sit to Stand (QC): 4 Chair/Evo-af-Hnxil Xfer(QC): 4 Toilet Transfer (QC): 4 (toileted independently) Gait Mode of Locomotion: Walk Anticipated Mode of Locomotion: Walk Walk 10 feet (QC): 4 Walk 50 ft with 2 Turns(QC): 4 Walk 150 ft (QC): 4 Distance: 300' Gait Assistive Device: FWW Comments/Gait Description safe and functional with no deviation Balance Sitting Static: Normal Sitting Dynamic: Normal Standing Static: Normal Standing Dynamic: Normal Assessment/Needs Patient will be seen short term by skilled PT to address functional strength and mobility to improve current LOF to safely return to home with family at maximum LOF. Rehab Potential: Fair PT Information Assurance Goals Information Assurance Goals PT Information Assurance Goals Time Frame: Jun 21, 2023 Roll Left & Right (QC): 6 Sit to Lying (QC): 6 Lying-Sitting on Side/Bed(QC): 6 Sit to Stand (QC): 6 Chair/Dmb-ew-Lasia Xfer(QC): 6 Toilet Transfer (QC): 6 Walk 10 feet (QC): 6 Walk 50ft with 2 Turns (QC): 6 Walk 150 ft (QC): 6 PT Plan Treatment/Plan Treatment Plan: Continue Plan of Care Treatment Plan: Education, Functional Activity Nakia, Functional Strength, Gait, Safety, Therapeutic Exercise, Transfers Treatment Duration: Jun 21, 2023 Frequency: 5 times per week Estimated Hrs Per Day: .25 hour per day Patient and/or Family Agrees t: Yes Time Time In: 855 Time Out: 915 DATE: Jun 16, 2023 Total Billed Treatment Time: 20 [facility] Jun 16, 2023 10:10
--- NOTE | 2023-06-16 10:15 | Cardiology Progress Note ---
Subjective Date Seen by Provider: Jun 16, 2023 Time Seen by Provider: 10:14 Subjective/Events-last exam Patient was seen at bedside laying down comfortably, still having some shortness of breath Asking about going home Review of Systems General: No Chills, No Night Sweats, No Fatigue, No Malaise, No Appetite, No Other HEENT: No Head Aches, No Visual Changes, No Eye Pain, No Ear Pain, No Dysphasia, No Sinus Congestion, No Post Nasal Drip, No Sore Throat, No Other Pulmonary: No Dyspnea, No Cough, No Pleuritic Chest Pain, No Other Cardiovascular: No: Chest Pain, Palpitations, Orthopnea, Paroxysmal Noc. Dyspnea, Edema, Lt Headedness, Other Focused Exam Time of Focused Exam: 12:00 Objective-Cardiology Exam Last Set of Vital Signs Vital Signs 06/14/23 06/16/23 06/16/23 20:00 07:26 08:33 Temp 36.7 Pulse 77 Resp 19 B/P (MAP) 196/91 (126) Pulse Ox 93 O2 Delivery Room Air O2 Flow Rate 0.00 FiO2 28 I&O Intake and Output 06/16/23 00:00 Intake Total 990 ml Balance 990 ml Intake Oral 940 ml IV Total 50 ml # Voids 7 General: Alert, Oriented X3, Cooperative, No Acute Distress HEENT: Atraumatic, PERRLA, EOMI Neck: Supple, +2 Carotid Pulse No Bruit Lungs: Clear to Auscultation, Normal Air Movement Heart: Regular Rate, Normal S1, Normal S2, No Murmurs Abdomen: Normal Bowel Sounds, Soft, No Tenderness Extremities: No Clubbing, No Cyanosis, Other (Trace pedal edema (pitting)) Skin: No Rashes, No Breakdown, No Significant Lesion Neuro: Normal Speech, Normal Tone, Sensation Intact Psych/Mental Status: Mental Status NL, Mood NL Results Lab Laboratory Tests 06/16/23 06:40 A/P-Cardiology Admission Diagnosis Sinus tachycardia LBBB UTI Sepsis Assessment/Plan Status post acute respiratory failure, Chest x-ray showed 5 lobes infiltrate versus pulmonary edema Receiving Lasix and antibiotic Has been using BiPAP at night due to sleep apnea Reporting improvement. Feeling better. Managed by primary care team Non-ST elevation myocardial infarction, elevation in troponin Significant deterioration in left ventricular function Cardiac catheterization done on June 13, 2023 with nonobstructive disease Congestive heart failure, acute left ventricular systolic dysfunction, nonischemic cardiomyopathy Significant deterioration in left ventricular systolic function Started on beta-blockers and Entresto Continue to maximize medical therapy 2D echo done on June 11, 2023 with diffuse left ventricular hypokinesia, hypokinesia of the anterior wall, akinesia of the apex, ejection fraction 30 to 35%, moderate mitral regurgitation, moderate tricuspid regurgitation, PA pressure 45 to 50 mmHg Chronic renal insufficiency, improvement in renal function Continue to monitor renal function closely after restarting losartan Coronary artery disease, Nonobstructive coronary artery disease per cardiac catheterization done in 2011. Cardiac catheterization done on June 13, 2023 showing nonobstructive disease, no change compared to the study of 2011 Chronic LBBB Hypertension, poor control. I restarted losartan at 25 mg daily, Coreg 3.125 mg twice daily and amlodipine 5 mg daily. Continue on clonidine and monitor blood pressure Confusion, unknown baseline SOFY HORN MD Jun 16, 2023 10:15
[2023-06-16 11:12] VITALS: BP 186/84
[2023-06-16] MEDS: ENOXAPARIN 40 MG/0.4 ML SYRINGE SC SCH (13:33)
[2023-06-16 15:45] VITALS: BP 175/84
[2023-06-16 20:00] VITALS: BP 163/76
[2023-06-16] MEDS: LATANOPROST 0.005% (XALATAN) OPHTH SOLN 2.5 ML OU SCH (20:06)
[2023-06-16 23:21] VITALS: BP 138/77
[2023-06-17 03:13] VITALS: BP 170/81
[2023-06-17 05:34] LABS: BASOPHILS % (AUTO) 0 % (0-10); EOSINOPHILS # (AUTO) 0.2 10^3/uL (0.0-0.3); EOSINOPHILS % (AUTO) 4 % (0-10); HEMATOCRIT 29 % (35-52); HEMOGLOBIN 9.7 g/dL (11.5-16.0); LYMPHOCYTES # (AUTO) 0.8 10^3/uL (1.0-4.0); LYMPHOCYTES % (AUTO) 12 % (12-44); MEAN CORPUSCULAR HEMOGLOBIN 31 pg (25-34); MEAN CORPUSCULAR HGB CONC 33 g/dL (32-36); MEAN CORPUSCULAR VOLUME 93 fL (80-99); MEAN PLATELET VOLUME 10.8 fL (9.0-12.2); MONOCYTES # (AUTO) 0.7 10^3/uL (0.0-1.0); MONOCYTES % (AUTO) 11 % (0-12); NEUTROPHILS # (AUTO) 4.8 10^3/uL (1.8-7.8); NEUTROPHILS % (AUTO) 73 % (42-75); PLATELET COUNT 151 10^3/uL (130-400); WHITE BLOOD COUNT 6.6 10^3/uL (4.3-11.0)
[2023-06-17 05:39] LABS: ALBUMIN 2.8 GM/DL (3.2-4.5); POTASSIUM 3.4 MMOL/L (3.6-5.0)
[2023-06-17 05:40] LABS: CALCIUM 9.2 MG/DL (8.5-10.1)
[2023-06-17 05:41] LABS: TOTAL PROTEIN 5.3 GM/DL (6.4-8.2)
[2023-06-17 05:43] LABS: BILIRUBIN,TOTAL 0.4 MG/DL (0.1-1.0)
[2023-06-17 05:45] LABS: CREATININE SERUM 0.88 MG/DL (0.60-1.30)
[2023-06-17 05:48] LABS: MAGNESIUM 1.8 MG/DL (1.6-2.4)
[2023-06-17 07:34] VITALS: BP 170/80
[2023-06-17] MEDS: RT-ALBUTEROL SULF 2.5 MG/3 ML PRE-MIX VIAL INH SCH (07:44)
--- NOTE | 2023-06-17 08:48 | Cardiology Progress Note ---
Subjective Date Seen by Provider: Jun 17, 2023 Time Seen by Provider: 08:47 Subjective/Events-last exam Patient was seen at bedside, sitting comfortably, breathing better, feeling better Asking to go home Focused Exam Time of Focused Exam: 12:00 Objective-Cardiology Exam Last Set of Vital Signs Vital Signs 06/14/23 06/17/23 06/17/23 20:00 07:34 07:52 Temp 36.9 Pulse 84 Resp 18 B/P (MAP) 170/80 (110) Pulse Ox 96 O2 Delivery High Flow N/C O2 Flow Rate 2.00 FiO2 28 I&O Intake and Output 06/17/23 00:00 Intake Total 1730 ml Balance 1730 ml Intake Oral 1730 ml # Voids 8 General: Alert, Oriented X3, Cooperative, No Acute Distress HEENT: Atraumatic, PERRLA, EOMI Neck: Supple, +2 Carotid Pulse No Bruit Lungs: Clear to Auscultation, Normal Air Movement Heart: Regular Rate, Normal S1, Normal S2, No Murmurs Abdomen: Normal Bowel Sounds, Soft, No Tenderness Extremities: No Clubbing, No Cyanosis, Other (Trace pedal edema (pitting)) Skin: No Rashes, No Breakdown, No Significant Lesion Neuro: Normal Speech, Normal Tone, Sensation Intact Psych/Mental Status: Mental Status NL, Mood NL Results Lab Laboratory Tests 06/17/23 05:15 A/P-Cardiology Admission Diagnosis Sinus tachycardia LBBB UTI Sepsis Assessment/Plan Status post acute respiratory failure, Chest x-ray showed 5 lobes infiltrate versus pulmonary edema Receiving Lasix and antibiotic Has been using BiPAP at night due to sleep apnea Reporting improvement. Feeling better. Managed by primary care team Non-ST elevation myocardial infarction, elevation in troponin Significant deterioration in left ventricular function Cardiac catheterization done on June 13, 2023 with nonobstructive disease Congestive heart failure, acute left ventricular systolic dysfunction, nonischemic cardiomyopathy Significant deterioration in left ventricular systolic function Started on beta-blockers and Entresto Tolerating current medication well. Continue to monitor 2D echo done on June 11, 2023 with diffuse left ventricular hypokinesia, hypokinesia of the anterior wall, akinesia of the apex, ejection fraction 30 to 35%, moderate mitral regurgitation, moderate tricuspid regurgitation, PA pressure 45 to 50 mmHg Chronic renal insufficiency, improvement in renal function Continue to monitor renal function closely after restarting losartan Coronary artery disease, Nonobstructive coronary artery disease per cardiac catheterization done in 2011. Cardiac catheterization done on June 13, 2023 showing nonobstructive disease, no change compared to the study of 2012 Chronic LBBB Hypertension, poor control. I restarted losartan at 25 mg daily, Coreg 3.125 mg twice daily and amlodipine 5 mg daily. Continue on clonidine and monitor blood pressure Confusion, unknown baseline SOFY HORN MD Jun 17, 2023 08:47
[2023-06-17] MEDS: DOCUSATE SODIUM 100 MG CAPSULE PO SCH (08:57)
[2023-06-17] MEDS: amLODIPine 5 MG TABLET PO SCH (08:58)
[2023-06-17] MEDS: LOSARTAN 25 MG (COZAAR) TAB PO SCH (08:58)
[2023-06-17] MEDS: SENNOSIDES 8.6 MG (SENOKOT) TAB PO SCH (08:58)
[2023-06-17] MEDS: carvediloL 6.25 MG TABLET PO SCH (08:58)
[2023-06-17] MEDS ORDERED: CLN.2T PO (09:38)
[2023-06-17] MEDS ORDERED: CARV6.252 PO (09:38)
[2023-06-17] MEDS ORDERED: LOSA25TA41 PO (09:38)
[2023-06-17] MEDS ORDERED: AMLO-250 PO (09:38)
--- NOTE | 2023-06-17 09:39 | Discharge Summary ---
Diagnosis/Chief Complaint Date of Admission Jun 11, 2023 at 13:01 Date of Discharge Discharge Date: Jun 17, 2023 Discharge Diagnosis Sepsis UTI Lactic acidosis Leukocytosis - improving KRISTINE - improving NSTEMI Cardiomyopathy Elevated troponin Discharge Summary Discharge Physical Examination Allergies: Coded Allergies: No Known Drug Allergies (Unverified , 06/12/09) Vitals & I&Os Vital Signs Date Time Temp Pulse Resp B/P (MAP) Pulse Ox O2 Delivery O2 Flow Rate FiO2 06/17/23 16:21 36.2 77 18 173/81 92 Room Air 2.00 06/14/23 20:00 28 General Appearance: Alert, Oriented X3, Cooperative Respiratory: Clear to Auscultation Cardiovascular: Regular Rate Psych/Mental Status: Mental Status NL Hospital Course Was the Problem List Reviewed?: Yes Hospital course: Patient had an uneventful but lengthy hospital course most of it requiring ICU care due to acute hypoxic respiratory failure with UTI and acute kidney injury with elevated troponin and signs of new onset congestive heart failure which was pursued and cardiac cath did not reveal any obstructing coronary lesions so diagnosis of nonischemic cardiomyopathy was made. Kidney function returned back to normal. overall she did extremely well was able to stabilize and refused to have home care or a walker and she was discharged home with her family. Labs (last 24 hrs) Laboratory Tests 06/11/23 09:52: White Blood Count 16.6H, Red Blood Count 4.34, Hemoglobin 13.3, Hematocrit 40, Mean Corpuscular Volume 92, Mean Corpuscular Hemoglobin 31, Mean Corpuscular Hemoglobin Concent 34, Red Cell Distribution Width 14.6H, Platelet Count 282, Mean Platelet Volume 10.9, Immature Granulocyte % (Auto) 1, Neutrophils (%) (Auto) 86H, Lymphocytes (%) (Auto) 7L, Monocytes (%) (Auto) 6, Eosinophils (%) (Auto) 0, Basophils (%) (Auto) 0, Neutrophils # (Auto) 14.3H, Lymphocytes # (Auto) 1.2, Monocytes # (Auto) 1.0, Eosinophils # (Auto) 0.0, Basophils # (Auto) 0.0, Immature Granulocyte # (Auto) 0.1, Neutrophils % (Manual) 92, Lymphocytes % (Manual) 5, Monocytes % (Manual) 3, Blood Morphology Comment NORMAL, Prothrombin Time 14.5, INR Comment 1.1, Activated Partial Thromboplast Time 24, Sodium Level 145, Potassium Level 3.6, Chloride Level 108H, Carbon Dioxide Level 21, Anion Gap 16H, Blood Urea Nitrogen 32H, Creatinine 2.03H, Estimat Glomerular Filtration Rate 23, BUN/Creatinine Ratio 16, Glucose Level 198H, Lactic Acid Level 2.44*H, Calcium Level 10.5H, Corrected Calcium 10.4H, Total Bilirubin 1.1H , Aspartate Amino Transf (AST/SGOT) 36H, Alanine Aminotransferase (ALT/SGPT) 17, Alkaline Phosphatase 69, Total Protein 7.0, Albumin 4.1 06/11/23 11:35: Urine Color YELLOW, Urine Clarity CLEAR, Urine pH 6.0, Urine Specific [place] >=1.030, Urine Protein 3+H, Urine Glucose (UA) NEGATIVE, Urine Ketones 1+H, Urine Nitrite NEGATIVE, Urine Bilirubin 1+H, Urine Urobilinogen 0.2, Urine Leukocyte Esterase 1+H, Urine RBC (Auto) 2+H, Urine RBC 2-5H, Urine WBC 25-50H, Urine Crystals NONE, Urine Bacteria LARGEH, Urine Casts NONE, Urine Mucus NEGATIVE, Urine Culture Indicated CULTURE PENDING 06/11/23 12:01: Lactic Acid Level 1.51 06/11/23 13:01: Lab Scanned Report Referred Lab Report 06/11/23 15:51: Troponin I 3.683*H 06/11/23 20:47: Glucometer 136H 06/12/23 04:57: Troponin I 2.242*H, White Blood Count 20.9H, Red Blood Count 4.23, Hemoglobin 13.0, Hematocrit 40, Mean Corpuscular Volume 94, Mean Corpuscular Hemoglobin 31, Mean Corpuscular Hemoglobin Concent 33, Red Cell Distribution Width 15.1H, Platelet Count 247, Mean Platelet Volume 11.3, Immature Granulocyte % (Auto) 1, Neutrophils (%) (Auto) 91H, Lymphocytes (%) (Auto) 3L, Monocytes (%) (Auto) 4, Eosinophils (%) (Auto) 0, Basophils (%) (Auto) 0, Neutrophils # (Auto) 19.1H, Lymphocytes # (Auto) 0.7L, Monocytes # (Auto) 0.9, Eosinophils # (Auto) 0.0, Basophils # (Auto) 0.0, Immature Granulocyte # (Auto) 0.3H, Neutrophils % (Manual) 90, Lymphocytes % (Manual) 5, Monocytes % (Manual) 3, Reactive Lymphocytes 2, Sodium Level 142, Potassium Level 3.7, Chloride Level 112H, Carbon Dioxide Level 20L, Anion Gap 10, Blood Urea Nitrogen 31H, Creatinine 1.75H, Estimat Glomerular Filtration Rate 28, BUN/Creatinine Ratio 18, Glucose Level 155H, Calcium Level 9.1, Corrected Calcium 9.6, Phosphorus Level 2.8, Magnesium Level 1.8, Total Bilirubin 0.8, Aspartate Amino Transf (AST/SGOT) 40H, Alanine Aminotransferase (ALT/SGPT) 24, Alkaline Phosphatase 61, Total Protein 5.8L, Albumin 3.4 06/12/23 12:30: Blood Gas Puncture Site R RAD, Blood Gas Patient Temperature 36.1, Arterial Blood pH 7.32*L, Arterial Blood Partial Pressure CO2 42, Arterial Blood Partial Pressure O2 57L, Arterial Blood HCO3 21L, Arterial Blood Total CO2 22.7, Arterial Blood Oxygen Saturation 90L, Arterial Blood Base Excess -3.9L, Simone Test YES-POS, Blood Gas Ventilator Setting NO, Blood Gas Inspired Oxygen 5L 06/13/23 05:40: White Blood Count 11.2H, Red Blood Count 3.45L, Hemoglobin 10.8L, Hematocrit 33L , Mean Corpuscular Volume 95, Mean Corpuscular Hemoglobin 31, Mean Corpuscular Hemoglobin Concent 33, Red Cell Distribution Width 15.0H, Platelet Count 168, Mean Platelet Volume 11.2, Immature Granulocyte % (Auto) 1, Neutrophils (%) (Auto) 87H, Lymphocytes (%) (Auto) 6L, Monocytes (%) (Auto) 6, Eosinophils (%) (Auto) 0, Basophils (%) (Auto) 0, Neutrophils # (Auto) 9.7H, Lymphocytes # (Auto) 0.7L, Monocytes # (Auto) 0.7, Eosinophils # (Auto) 0.0, Basophils # (Auto) 0.0, Immature Granulocyte # (Auto) 0.1, Sodium Level 142, Potassium Level 3.9, Chloride Level 112H, Carbon Dioxide Level 23, Anion Gap 7, Blood Urea Nitrogen 35H, Creatinine 1.70H, Estimat Glomerular Filtration Rate 29, BUN/Creatinine Ratio 21, Glucose Level 114H, Calcium Level 9.0, Corrected Calcium 9.9, Phosphorus Level 3.1, Magnesium Level 2.3, Total Bilirubin 0.5, Aspartate Amino Transf (AST/SGOT) 19, Alanine Aminotransferase (ALT/SGPT) 19, Alkaline Phosphatase 49, Total Protein 4.9L, Albumin 2.9L 06/13/23 06:48: Blood Gas Puncture Site LEFT RADIAL, Blood Gas Patient Temperature 35.6, Arterial Blood pH 7.36L, Arterial Blood Partial Pressure CO2 43, Arterial Blood Partial Pressure O2 60L, Arterial Blood HCO3 25, Arterial Blood Total CO2 26.0, Arterial Blood Oxygen Saturation 94, Arterial Blood Base Excess -0.4, Simone Test POSITIVE, Blood Gas Ventilator Setting NO, Blood Gas Inspired Oxygen 35% 2L 06/14/23 04:35: White Blood Count 6.3, Red Blood Count 3.06L, Hemoglobin 9.4L, Hematocrit 29L, Mean Corpuscular Volume 95, Mean Corpuscular Hemoglobin 31, Mean Corpuscular Hemoglobin Concent 32, Red Cell Distribution Width 15.1H, Platelet Count 130, Mean Platelet Volume 11.6, Immature Granulocyte % (Auto) 1, Neutrophils (%) (Auto) 81H, Lymphocytes (%) (Auto) 9L, Monocytes (%) (Auto) 8, Eosinophils (%) (Auto) 1, Basophils (%) (Auto) 0, Neutrophils # (Auto) 5.1, Lymphocytes # (Auto) 0.6L, Monocytes # (Auto) 0.5, Eosinophils # (Auto) 0.1, Basophils # (Auto) 0.0, Immature Granulocyte # (Auto) 0.0, Sodium Level 142, Potassium Level 4.0, Chloride Level 113H, Carbon Dioxide Level 23, Anion Gap 6, Blood Urea Nitrogen 35H, Creatinine 1.33H, Estimat Glomerular Filtration Rate 39, BUN/Creatinine Ra maryam 26, Glucose Level 110H, Calcium Level 8.9, Corrected Calcium 10.0, Magnesium Level 2.1, Total Bilirubin 0.3, Aspartate Amino Transf (AST/SGOT) 16, Alanine Aminotransferase (ALT/SGPT) 18, Alkaline Phosphatase 42, Total Protein 4.5L, Albumin 2.6L, Percent Immature Platelet Fraction 5.0 06/15/23 05:15: White Blood Count 5.8, Red Blood Count 2.99L, Hemoglobin 9.2L, Hematocrit 29L, Mean Corpuscular Volume 95, Mean Corpuscular Hemoglobin 31, Mean Corpuscular Hemoglobin Concent 32, Red Cell Distribution Width 15.0H, Platelet Count 132, Mean Platelet Volume 11.3, Immature Granulocyte % (Auto) 1, Neutrophils (%) (Auto) 77H, Lymphocytes (%) (Auto) 10L, Monocytes (%) (Auto) 10, Eosinophils (%) (Auto) 2, Basophils (%) (Auto) 0, Neutrophils # (Auto) 4.5, Lymphocytes # (Auto) 0.6L, Monocytes # (Auto) 0.6, Eosinophils # (Auto) 0.1, Basophils # (Auto) 0.0, Immature Granulocyte # (Auto) 0.1, Sodium Level 142, Potassium Level 3.8, Chloride Level 113H, Carbon Dioxide Level 25, Anion Gap 4L, Blood Urea Nitrogen 27H, Creatinine 1.04, Estimat Glomerular Filtration Rate 52, BUN/Creatinine Ratio 26, Glucose Level 118H, Calcium Level 8.8, Corrected Calcium 9.8, Magnesium Level 2.1, Total Bilirubin 0.3, Aspartate Amino Transf (AST/SGOT) 12, Alanine Aminotransferase (ALT/SGPT) 16, Alkaline Phosphatase 43, Total Protein 4.7L, Albumin 2.7L, Percent Immature Platelet Fraction 5.8 06/16/23 06:40: White Blood Count 6.7, Red Blood Count 3.19L, Hemoglobin 10.0L, Hematocrit 30L, Mean Corpuscular Volume 94, Mean Corpuscular Hemoglobin 31, Mean Corpuscular Hemoglobin Concent 33, Red Cell Distribution Width 14.7H, Platelet Count 141, Mean Platelet Volume 11.2, Immature Granulocyte % (Auto) 1, Neutrophils (%) (Auto) 74, Lymphocytes (%) (Auto) 11L, Monocytes (%) (Auto) 10, Eosinophils (%) (Auto) 4, Basophils (%) (Auto) 0, Neutrophils # (Auto) 4.9, Lymphocytes # (Auto) 0.7L, Monocytes # (Auto) 0.7, Eosinophils # (Auto) 0.3, Basophils # (Auto) 0.0, Immature Granulocyte # (Auto) 0.1, Sodium Level 143, Potassium Level 3.7, Chloride Level 110H, Carbon Dioxide Level 26, Anion Gap 7, Blood Urea Nitrogen 16, Creatinine 0.90, Estimat Glomerular Filtration Rate 62, BUN/Creatinine Ratio 18, Glucose Level 110H, Calcium Level 9.3, Corrected Calcium 10.2H, Magnesium Level 1.9, Total Bilirubin 0.4, Aspartate Amino Transf (AST/SGOT) 15, Alanine Aminotransferase (ALT/SGPT) 15, Alkaline Phosphatase 53, Total Protein 5.4L, Albumin 2.9L 06/17/23 05:15: White Blood Count 6.6, Red Blood Count 3.13L, Hemoglobin 9.7L, Hematocrit 29L, Mean Corpuscular Volume 93, Mean Corpuscular Hemoglobin 31, Mean Corpuscular Hemoglobin Concent 33, Red Cell Distribution Width 14.7H, Platelet Count 151, Mean Platelet Volume 10.8, Immature Granulocyte % (Auto) 1, Neutrophils (%) (Auto) 73, Lymphocytes (%) (Auto) 12, Monocytes (%) (Auto) 11, Eosinophils (%) (Auto) 4, Basophils (%) (Auto) 0, Neutrophils # (Auto) 4.8, Lymphocytes # (Auto) 0.8L, Monocytes # (Auto) 0.7, Eosinophils # (Auto) 0.2, Basophils # (Auto) 0.0, Immature Granulocyte # (Auto) 0.1, Sodium Level 142, Potassium Level 3.4L, Chloride Level 106, Carbon Dioxide Level 28, Anion Gap 8, Blood Urea Nitrogen 13, Creatinine 0.88, Estimat Glomerular Filtration Rate 64, BUN/Creatinine Ratio 15, Glucose Level 114H, Calcium Level 9.2, Corrected Calcium 10.2H, Magnesium Level 1.8, Total Bilirubin 0.4, Aspartate Amino Transf (AST/SGOT) 15, Alanine Aminotransferase (ALT/SGPT) 16, Alkaline Phosphatase 52, Total Protein 5.3L, Albumin 2.8L Microbiology 06/11/23 MRSA Screen - Final, Complete MRSA not isolated 06/11/23 Urine Culture - Final, Complete Klebsiella pneumoniae 06/11/23 Blood Culture - Final, Complete No growth Pending Labs Microbiology Date/Time Source Procedure Growth Status 06/11/23 13:16 Nasal MRSA Screen - Final MRSA not isolated Complete 06/11/23 11:35 Urine U Cath,Nos Urine Culture - Final Klebsiella pneumoniae Complete 06/11/23 10:43 Peripheral Rt Ac Blood Culture - Final No growth Complete 06/11/23 09:52 Peripheral Not Otherwise Specified Blood Culture - Final No growth Complete Laboratory Tests 06/11/23 09:52: White Blood Count 16.6, Red Blood Count 4.34, Hemoglobin 13.3, Hematocrit 40, Mean Corpuscular Volume 92, Mean Corpuscular Hemoglobin 31, Mean Corpuscular Hemoglobin Concent 34, Red Cell Distribution Width 14.6, Platelet Count 282, Mean Platelet Volume 10.9, Immature Granulocyte % (Auto) 1, Neutrophils (%) (Auto) 86, Lymphocytes (%) (Auto) 7, Monocytes (%) (Auto) 6, Eosinophils (%) (Auto) 0, Basophils (%) (Auto) 0, Neutrophils # (Auto) 14.3, Lymphocytes # (Auto) 1.2, Monocytes # (Auto) 1.0, Eosinophils # (Auto) 0.0, Basophils # (Auto) 0.0, Immature Granulocyte # (Auto) 0.1, Neutrophils % (Manual) 92, Lymphocytes % (Manual) 5, Monocytes % (Manual) 3, Blood Morphology Comment NORMAL, Prothrombin Time 14.5, INR Comment 1.1, Activated Partial Thromboplast Time 24, Sodium Level 145, Potassium Level 3.6, Chloride Level 108, Carbon Dioxide Level 21, Anion Gap 16, Blood Urea Nitrogen 32, Creatinine 2.03, Estimat Glomerular Filtration Rate 23, BUN/Creatinine Ratio 16, Glucose Level 198, Lactic Acid Level 2.44, Calcium Level 10.5, Corrected Calcium 10.4, Total Bilirubin 1.1, Aspartate Amino Transf (AST/SGOT) 36, Alanine Aminotransferase (ALT/SGPT) 17, Alkaline Phosphatase 69, Total Protein 7.0, Albumin 4.1 06/11/23 11:35: Urine Color YELLOW, Urine Clarity CLEAR, Urine pH 6.0, Urine Specific [place] >=1.030, Urine Protein 3+, Urine Glucose (UA) NEGATIVE, Urine Ketones 1+, Urine Nitrite NEGATIVE, Urine Bilirubin 1+, Urine Urobilinogen 0.2, Urine Leukocyte Esterase 1+, Urine RBC (Auto) 2+, Urine RBC 2-5, Urine WBC 25-50, Urine Crystals NONE, Urine Bacteria LARGE, Urine Casts NONE, Urine Mucus NEGATIVE, Urine Culture Indicated CULTURE PENDING 06/11/23 12:01: Lactic Acid Level 1.51 06/11/23 13:01: Lab Scanned Report Referred Lab Report 06/11/23 15:51: Troponin I 3.683 06/11/23 20:47: Glucometer 136 06/12/23 04:57: Troponin I 2.242, White Blood Count 20.9, Red Blood Count 4.23, Hemoglobin 13.0, Hematocrit 40, Mean Corpuscular Volume 94, Mean Corpuscular Hemoglobin 31, Mean Corpuscular Hemoglobin Concent 33, Red Cell Distribution Width 15.1, Platelet Count 247, Mean Platelet Volume 11.3, Immature Granulocyte % (Auto) 1, Neutrophils (%) (Auto) 91, Lymphocytes (%) (Auto) 3, Monocytes (%) (Auto) 4, Eosinophils (%) (Auto) 0, Basophils (%) (Auto) 0, Neutrophils # (Auto) 19.1, Lymphocytes # (Auto) 0.7, Monocytes # (Auto) 0.9, Eosinophils # (Auto) 0.0, Basophils # (Auto) 0.0, Immature Granulocyte # (Auto) 0.3, Neutrophils % (Manual) 90, Lymphocytes % (Manual) 5, Monocytes % (Manual) 3, Reactive Lymphocytes 2, Sodium Level 142, Potassium Level 3.7, Chloride Level 112, Carbon Dioxide Level 20, Anion Gap 10, Blood Urea Nitrogen 31, Creatinine 1.75, Estimat Glomerular Filtration Rate 28, BUN/Creatinine Ratio 18, Glucose Level 155, Calcium Level 9.1, Corrected Calcium 9.6, Phosphorus Level 2.8, Magnesium Level 1.8, Total Bilirubin 0.8, Aspartate Amino Transf (AST/SGOT) 40, Alanine Aminotransferase (ALT/SGPT) 24, Alkaline Phosphatase 61, Total Protein 5.8, Albumin 3.4 06/12/23 12:30: Blood Gas Puncture Site R RAD, Blood Gas Patient Temperature 36.1, Arterial Blood pH 7.32, Arterial Blood Partial Pressure CO2 42, Arterial Blood Partial Pressure O2 57, Arterial Blood HCO3 21, Arterial Blood Total CO2 22.7, Arterial Blood Oxygen Saturation 90, Arterial Blood Base Excess -3.9, Simone Test YES-POS, Blood Gas Ventilator Setting NO, Blood Gas Inspired Oxygen 5L 06/13/23 05:40: White Blood Count 11.2, Red Blood Count 3.45, Hemoglobin 10.8, Hematocrit 33, Mean Corpuscular Volume 95, Mean Corpuscular Hemoglobin 31, Mean Corpuscular Hemoglobin Concent 33, Red Cell Distribution Width 15.0, Platelet Count 168, Mean Platelet Volume 11.2, Immature Granulocyte % (Auto) 1, Neutrophils (%) (Auto) 87, Lymphocytes (%) (Auto) 6, Monocytes (%) (Auto) 6, Eosinophils (%) (Auto) 0, Basophils (%) (Auto) 0, Neutrophils # (Auto) 9.7, Lymphocytes # (Auto) 0.7, Monocytes # (Auto) 0.7, Eosinophils # (Auto) 0.0, Basophils # (Auto) 0.0, Immature Granulocyte # (Auto) 0.1, Sodium Level 142, Potassium Level 3.9, Chloride Level 112, Carbon Dioxide Level 23, Anion Gap 7, Blood Urea Nitrogen 35, Creatinine 1.70, Estimat Glomerular Filtration Rate 29, BUN/Creatinine Ratio 21, Glucose Level 114, Calcium Level 9.0, Corrected Calcium 9.9, Phosphorus Level 3.1, Magnesium Level 2.3, Total Bilirubin 0.5, Aspartate Amino Transf (AST/SGOT) 19, Alanine Aminotransferase (ALT/SGPT) 19, Alkaline Phosphatase 49, Total Protein 4.9, Albumin 2.9 06/13/23 06:48: Blood Gas Puncture Site LEFT RADIAL, Blood Gas Patient Temperature 35.6, Arterial Blood pH 7.36, Arterial Blood Partial Pressure CO2 43, Arterial Blood Partial Pressure O2 60, Arterial Blood HCO3 25, Arterial Blood Total CO2 26.0, Arterial Blood Oxygen Saturation 94, Arterial Blood Base Excess -0.4, Simone Test POSITIVE, Blood Gas Ventilator Setting NO, Blood Gas Inspired Oxygen 35% 2L 06/14/23 04:35: White Blood Count 6.3, Red Blood Count 3.06, Hemoglobin 9.4, Hematocrit 29, Mean Corpuscular Volume 95, Mean Corpuscular Hemoglobin 31, Mean Corpuscular H emoglobin Concent 32, Red Cell Distribution Width 15.1, Platelet Count 130, Mean Platelet Volume 11.6, Immature Granulocyte % (Auto) 1, Neutrophils (%) (Auto) 81, Lymphocytes (%) (Auto) 9, Monocytes (%) (Auto) 8, Eosinophils (%) (Auto) 1, Basophils (%) (Auto) 0, Neutrophils # (Auto) 5.1, Lymphocytes # (Auto) 0.6, Monocytes # (Auto) 0.5, Eosinophils # (Auto) 0.1, Basophils # (Auto) 0.0, Immature Granulocyte # (Auto) 0.0, Sodium Level 142, Potassium Level 4.0, Chloride Level 113, Carbon Dioxide Level 23, Anion Gap 6, Blood Urea Nitrogen 35, Creatinine 1.33, Estimat Glomerular Filtration Rate 39, BUN/Creatinine Ratio 26, Glucose Level 110, Calcium Level 8.9, Corrected Calcium 10.0, Magnesium Level 2.1, Total Bilirubin 0.3, Aspartate Amino Transf (AST/SGOT) 16, Alanine Aminotransferase (ALT/SGPT) 18, Alkaline Phosphatase 42, Total Protein 4.5, Albumin 2.6, Percent Immature Platelet Fraction 5.0 06/15/23 05:15: White Blood Count 5.8, Red Blood Count 2.99, Hemoglobin 9.2, Hematocrit 29, Mean Corpuscular Volume 95, Mean Corpuscular Hemoglobin 31, Mean Corpuscular Hemoglobin Concent 32, Red Cell Distribution Width 15.0, Platelet Count 132, Mean Platelet Volume 11.3, Immature Granulocyte % (Auto) 1, Neutrophils (%) (Auto) 77, Lymphocytes (%) (Auto) 10, Monocytes (%) (Auto) 10, Eosinophils (%) (Auto) 2, Basophils (%) (Auto) 0, Neutrophils # (Auto) 4.5, Lymphocytes # (Auto) 0.6, Monocytes # (Auto) 0.6, Eosinophils # (Auto) 0.1, Basophils # (Auto) 0.0, Immature Granulocyte # (Auto) 0.1, Sodium Level 142, Potassium Level 3.8, Chloride Level 113, Carbon Dioxide Level 25, Anion Gap 4, Blood Urea Nitrogen 27, Creatinine 1.04, Estimat Glomerular Filtration Rate 52, BUN/Creatinine Ratio 26, Glucose Level 118, Calcium Level 8.8, Corrected Calcium 9.8, Magnesium Level 2.1, Total Bilirubin 0.3, Aspartate Amino Transf (AST/SGOT) 12, Alanine Aminotransferase (ALT/SGPT) 16, Alkaline Phosphatase 43, Total Protein 4.7, Albumin 2.7, Percent Immature Platelet Fraction 5.8 06/16/23 06:40: White Blood Count 6.7, Red Blood Count 3.19, Hemoglobin 10.0, Hematocrit 30, Mean Corpuscular Volume 94, Mean Corpuscular Hemoglobin 31, Mean Corpuscular Hemoglobin Concent 33, Red Cell Distribution Width 14.7, Platelet Count 141, Mean Platelet Volume 11.2, Immature Granulocyte % (Auto) 1, Neutrophils (%) (Auto) 74, Lymphocytes (%) (Auto) 11, Monocytes (%) (Auto) 10, Eosinophils (%) (Auto) 4, Basophils (%) (Auto) 0, Neutrophils # (Auto) 4.9, Lymphocytes # (Auto) 0.7, Monocytes # (Auto) 0.7, Eosinophils # (Auto) 0.3, Basophils # (Auto) 0.0, Immature Granulocyte # (Auto) 0.1, Sodium Level 143, Potassium Level 3.7, Chloride Level 110, Carbon Dioxide Level 26, Anion Gap 7, Blood Urea Nitrogen 16, Creatinine 0.90, Estimat Glomerular Filtration Rate 62, BUN/Creatinine Ratio 18, Glucose Level 110, Calcium Level 9.3, Corrected Calcium 10.2, Magnesium Level 1.9, Total Bilirubin 0.4, Aspartate Amino Transf (AST/SGOT) 15, Alanine Aminotransferase (ALT/SGPT) 15, Alkaline Phosphatase 53, Total Protein 5.4, Albumin 2.9 06/17/23 05:15: White Blood Count 6.6, Red Blood Count 3.13, Hemoglobin 9.7, Hematocrit 29, Mean Corpuscular Volume 93, Mean Corpuscular Hemoglobin 31, Mean Corpuscular Hemoglobin Concent 33, Red Cell Distribution Width 14.7, Platelet Count 151, Mean Platelet Volume 10.8, Immature Granulocyte % (Auto) 1, Neutrophils (%) (Auto) 73, Lymphocytes (%) (Auto) 12, Monocytes (%) (Auto) 11, Eosinophils (%) (Auto) 4, Basophils (%) (Auto) 0, Neutrophils # (Auto) 4.8, Lymphocytes # (Auto) 0.8, Monocytes # (Auto) 0.7, Eosinophils # (Auto) 0.2, Basophils # (Auto) 0.0, Immature Granulocyte # (Auto) 0.1, Sodium Level 142, Potassium Level 3.4, Chloride Level 106, Carbon Dioxide Level 28, Anion Gap 8, Blood Urea Nitrogen 13, Creatinine 0.88, Estimat Glomerular Filtration Rate 64, BUN/Creatinine Ratio 15, Glucose Level 114, Calcium Level 9.2, Corrected Calcium 10.2, Magnesium Level 1.8, Total Bilirubin 0.4, Aspartate Amino Transf (AST/SGOT) 15, Alanine Aminotransferase (ALT/SGPT) 16, Alkaline Phosphatase 52, Total Protein 5.3, Albumin 2.8 Discharge Home Medications: Active Scripts Active Losartan Potassium 25 Mg Tablet 25 Mg PO DAILY Amlodipine Besylate 5 Mg Tablet 5 Mg PO DAILY Carvedilol 6.25 Mg Tablet 6.25 Mg PO BID Clonidine HCl 0.2 Mg Tablet 0.2 Mg PO TID Reported Xalatan (Latanoprost) 0.005 % Drops 1 Drop OU HS Instructions to patient/family Please see electronic discharge instructions given to patient. ROSELIA OLIVEIRA DO Jun 17, 2023 09:39
[2023-06-17] MEDS: ENOXAPARIN 40 MG/0.4 ML SYRINGE SC SCH (14:52)
[2023-06-17 15:30] VITALS: BP 173/81
[2023-06-17 16:21] VITALS: BP 173/81
== END 2023-06-17 15:55 | disposition home or self-care (01) | DRG 871 ==
LOC: EDUNIT# 09:36 → ER 09:38 → ICU 13:01 → 4TH 06-14 14:14
PROVIDERS: ADMIT Internal Medicine; ATTEND Internal Medicine
PROC: 5A09357 Assistance with Respiratory Ventilation, Less than 24 Consecutive Hours, Continuous Positive Airway Pressure (ICD-10-PCS; 2023-06-12)
PROC: 4A023N7 Measurement of Cardiac Sampling and Pressure, Left Heart, Percutaneous Approach (ICD-10-PCS; principal; 2023-06-13)
PROC: B2111ZZ Fluoroscopy of Multiple Coronary Arteries using Low Osmolar Contrast (ICD-10-PCS; 2023-06-13)
PROC: 5A0935A Assistance with Respiratory Ventilation, Less than 24 Consecutive Hours, High Flow/Velocity Cannula (ICD-10-PCS; 2023-06-13)
DX: A41.9 Sepsis, unspecified organism (principal); I21.4 Non-ST elevation (NSTEMI) myocardial infarction; J96.01 Acute respiratory failure with hypoxia; N39.0 Urinary tract infection, site not specified; E87.20 Acidosis, unspecified; N17.9 Acute kidney failure, unspecified; G93.40 Encephalopathy, unspecified; I42.8 Other cardiomyopathies; I13.0 Hypertensive heart and chronic kidney disease with heart failure and stage 1 through stage 4 chronic kidney disease, or unspecified chronic kidney disease; D72.829 Elevated white blood cell count, unspecified; I44.7 Left bundle-branch block, unspecified; I27.20 Pulmonary hypertension, unspecified; I50.9 Heart failure, unspecified; I25.10 Atherosclerotic heart disease of native coronary artery without angina pectoris; I48.0 Paroxysmal atrial fibrillation; E78.5 Hyperlipidemia, unspecified; N18.9 Chronic kidney disease, unspecified; G47.30 Sleep apnea, unspecified
CPT/HCPCS: 36415; 36569; 36600; 51702; 71045; 76937; 80053; 81000; 82805; 82947; 83605; 83735; 84100; 84484; 85007; 85025; 85027; 85610; 85730; 87040; 87077; 87081; 87088; 87186; 93005; 93306; 93458; 94640; 94660; 94760; 94761; 96361; 96374; 96375

== ENCOUNTER → 2023-06-23 | Outpatient (CLI) | payer MEDICARE ==
[~2023-06-23] MED LIST changes: +AMLO-250 PO; +CARV6.252 PO; +CLN.2T PO; +ENAL-70 PO; +LATA2.5D19 OU; +LOSA25TA41 PO; +METO50TA7 PO
--- NOTE | 2023-06-23 16:53 | Diagnostic Imaging Report ---
INDICATION: Pneumonia. PA and lateral views were obtained. Comparison is made with prior exam of 06/13/2023 Findings: There is cardiomegaly. The mediastinum is unremarkable. There is no pleural effusion, pneumothorax or pneumonia. Impression: Cardiomegaly. No acute cardiopulmonary abnormality.. Dictated by: Dictated on workstation # [id number]
== END ==
LOC: RAD 16:22
PROVIDERS: ATTEND Physician Assistant
DX: J18.9 Pneumonia, unspecified organism (principal); I51.7 Cardiomegaly
CPT/HCPCS: 71046

== ENCOUNTER 2023-07-25 20:35 | Outpatient (CLI) | payer MEDICARE | END 2023-07-26 05:13 | LOC: SLEEP 20:35 | PROVIDERS: ATTEND Family Medicine | DX: G47.30 Sleep apnea, unspecified (principal); G47.19 Other hypersomnia | CPT/HCPCS: 95810 ==

== ENCOUNTER → 2023-10-22 | Outpatient (CLI) | payer MEDICARE, OTHER ==
--- NOTE | 2023-10-22 14:16 | Diagnostic Imaging Report ---
Indication: Right hip pain. AP and oblique views of the right hip are obtained. No fracture or acute bony abnormality seen. There is no lytic or blastic lesion. Joint spaces appear preserved. Impression: Negative right hip. Dictated by: Dictated on workstation # [id number]
== END ==
LOC: ORTHO 09:52
PROVIDERS: ATTEND Orthopaedic Surgery
DX: M70.61 Trochanteric bursitis, right hip (principal); M54.50 Low back pain, unspecified
CPT/HCPCS: 73502; G0463; 99203